=== PATIENT | female | born 1980 | race Caucasian/White ===

== ENCOUNTER → 2019-12-20 13:39 | Outpatient (BNVA) | payer MEDICARE, MEDICAID, SELFPAY | PROVIDERS: PCP Internal Medicine; Visit Provider Family Medicine Adult Medicine | DX: M54.16 Radiculopathy, lumbar region (principal); Z79.891 Long term (current) use of opiate analgesic; Z89.511 Acquired absence of right leg below knee | CPT/HCPCS: 99212 ==

== ENCOUNTER → 2020-01-15 11:38 | Outpatient (BNVA) | payer MEDICARE, MEDICAID, SELFPAY | PROVIDERS: PCP Internal Medicine; Referring Provider Internal Medicine; Visit Provider Family Medicine Adult Medicine | DX: M54.16 Radiculopathy, lumbar region (principal); Z79.891 Long term (current) use of opiate analgesic; Z89.511 Acquired absence of right leg below knee | CPT/HCPCS: 99212 ==

== ENCOUNTER → 2020-02-26 11:56 | Outpatient (BNVA) | payer MEDICARE, MEDICAID, SELFPAY | PROVIDERS: PCP Internal Medicine; Visit Provider Family Medicine Adult Medicine | DX: M54.16 Radiculopathy, lumbar region (principal); Z89.511 Acquired absence of right leg below knee | CPT/HCPCS: 99212 ==

== ENCOUNTER → 2020-04-10 11:06 | Outpatient (BNVA) | payer MEDICARE, MEDICAID, SELFPAY | PROVIDERS: PCP Internal Medicine; Visit Provider Family Medicine Adult Medicine | DX: M54.16 Radiculopathy, lumbar region (principal); Z89.511 Acquired absence of right leg below knee | CPT/HCPCS: 99212 ==

== ENCOUNTER → 2020-04-24 14:27 | Outpatient (BNVA) | payer MEDICARE, MEDICAID, SELFPAY | PROVIDERS: PCP Internal Medicine; Visit Provider Anesthesiology | DX: G54.6 Phantom limb syndrome with pain (principal); Z89.511 Acquired absence of right leg below knee; Z79.899 Other long term (current) drug therapy | CPT/HCPCS: 99212 ==

== ENCOUNTER → 2020-05-08 14:11 | Outpatient (BNVA) | payer MEDICARE, MEDICAID, SELFPAY | PROVIDERS: PCP Internal Medicine; Visit Provider Family Medicine Adult Medicine | DX: M54.16 Radiculopathy, lumbar region (principal); Z89.511 Acquired absence of right leg below knee; Z79.899 Other long term (current) drug therapy | CPT/HCPCS: 99212 ==

== ENCOUNTER 2020-05-12 10:35 | Outpatient (REF) | payer MEDICARE, MEDICAID, SELFPAY ==
--- NOTE | ~2020-05-12 | MR_ITS ---
EXAMINATION: MR LUMBAR SPINE WITHOUT CONTRAST CLINICAL INFORMATION: Radiculopathy, lumbar region. COMPARISON: None TECHNIQUE: MRI of the lumbar spine was obtained using routine sequences without contrast. FINDINGS: VERTEBRAL BODIES AND PARASPINAL STRUCTURES: Vertebral body heights are normal. No fractures. There is relative exaggeration of the lumbar lordosis. There is a partially lumbarized appearance of the S1 vertebral body. Bone marrow signal is likely hematopoietic, relatively low on T1-weighted images, though still greater than that of the adjacent musculature. No significant focal marrow signal abnormalities. Intervertebral discs are relatively well-preserved. There is a 2 cm right renal cyst. Paraspinal soft tissues are otherwise unremarkable. CONUS MEDULLARIS AND CAUDA EQUINA: Normal, terminating at the level of L1-L2. SPINAL LEVELS: T12-L1: Normal L1-L2: Normal L2-L3: Normal L3-L4: Normal L4-L5: Minimal annular bulge, asymmetric to the left. No central canal or neural foraminal stenoses. Mild facet arthropathy. L5-S1: Mild facet arthropathy. No central canal or neural foraminal stenoses. MR/MR lumbar spine wo con IMPRESSION: Mild facet arthropathy in the lower lumbar spine at L4-L5 and L5-S1. No central canal or neural foraminal stenoses.
== END 2020-05-12 10:36 | disposition home or self-care (01) ==
LOC: HO.MRI 10:35
PROVIDERS: PCP Internal Medicine; Visit Provider Anesthesiology
DX: M54.16 Radiculopathy, lumbar region (principal); R26.81 Unsteadiness on feet
CPT/HCPCS: 72148

== ENCOUNTER → 2020-06-05 10:29 | Outpatient (BNVA) | payer OTHER, SELFPAY | PROVIDERS: PCP Internal Medicine; Visit Provider Family Medicine Adult Medicine | DX: M54.16 Radiculopathy, lumbar region (principal); Z89.511 Acquired absence of right leg below knee | CPT/HCPCS: 99212 ==

== ENCOUNTER → 2020-06-11 09:50 | Outpatient (BNVA) | payer OTHER, SELFPAY | PROVIDERS: PCP Internal Medicine; Visit Provider Anesthesiology | DX: G54.6 Phantom limb syndrome with pain (principal); M47.816 Spondylosis without myelopathy or radiculopathy, lumbar region; Z89.511 Acquired absence of right leg below knee | CPT/HCPCS: 99212 ==

== ENCOUNTER → 2020-07-01 11:28 | Outpatient (BNVA) | payer OTHER, SELFPAY | PROVIDERS: PCP Internal Medicine; Visit Provider Family Medicine Adult Medicine | DX: M54.16 Radiculopathy, lumbar region (principal); Z89.511 Acquired absence of right leg below knee | CPT/HCPCS: 99212 ==

== ENCOUNTER → 2020-07-08 11:12 | Outpatient (BNVA) | payer OTHER, SELFPAY | PROVIDERS: PCP Internal Medicine; Visit Provider Family Medicine Adult Medicine | DX: M54.16 Radiculopathy, lumbar region (principal); Z89.511 Acquired absence of right leg below knee | CPT/HCPCS: Q3014 ==

== ENCOUNTER → 2020-08-05 12:43 | Outpatient (BNVA) | payer OTHER, SELFPAY | PROVIDERS: PCP Internal Medicine; Visit Provider Nurse Practitioner Family | DX: M54.16 Radiculopathy, lumbar region (principal); Z89.511 Acquired absence of right leg below knee | CPT/HCPCS: 99212 ==

== ENCOUNTER → 2020-09-03 12:57 | Outpatient (BNVA) | payer OTHER, SELFPAY | PROVIDERS: PCP Internal Medicine; Visit Provider Nurse Practitioner Family | DX: M54.16 Radiculopathy, lumbar region (principal); Z89.511 Acquired absence of right leg below knee; Z79.899 Other long term (current) drug therapy | CPT/HCPCS: 99212 ==

== ENCOUNTER → 2020-09-30 13:28 | Outpatient (BNVA) | payer OTHER, SELFPAY | PROVIDERS: PCP Internal Medicine; Visit Provider Family Medicine Adult Medicine | DX: M54.16 Radiculopathy, lumbar region (principal); Z89.511 Acquired absence of right leg below knee | CPT/HCPCS: 99212 ==

== ENCOUNTER 2020-10-02 14:53 | Outpatient (REF) | payer OTHER, SELFPAY ==
[2020-10-02 15:07] LABS: MANUAL DIFF FLAG NO
[2020-10-02 15:13] LABS: Basophils Absolute Auto 0.1 X10*3/uL (0.0-0.2); Basophils Percent Auto 0.4 % (0-2); Eosinophils Absolute Auto 0.1 X10*3/uL (0.0-0.4); Eosinophils Percent Auto 0.9 % (0-4); Hematocrit 44.2 % (37-47); Hemoglobin 14.4 g/dl (12.0-16.0); Imm Gran Abs Auto 0.05 X10*3/uL (0.00-0.03); Imm Gran Pct Auto 0.4 % (0.0-0.4); Lymphocytes Percent Auto 31.6 % (20-40); Mean Corpuscular HGB Conc 32.6 g/dl (31.0-35.0); Mean Corpuscular Hemoglobin 27.7 pg (27.0-33.0); Mean Platelet Volume 10.4 fL (9.4-12.3); Monocytes Absolute Auto 0.8 X10*3/uL (0.1-1.2); Monocytes Percent Auto 6.4 % (2-11); Neutrophils Absolute Auto 7.7 X10*3/uL (2.0-8.3); Neutrophils Percent Auto 60.3 % (45-73); Platelet Count 307 X10*3/uL (160-400); Red Cell Distribution Width 12.5 % (11.0-16.0); White Blood Count 12.7 X10*3/uL (4.8-10.8)
[2020-10-02 15:38] LABS: Alanine Aminotransferase 27 U/L (0-31); Albumin Level 4.5 g/dL (3.5-5.0); Alkaline Phosphatase 81 U/L (39-117); Anion Gap 10 (12-20); Aspartate Amino Transferase 18 U/L (5-31); Bilirubin Total 0.6 mg/dL (0.0-1.0); Blood Urea Nitrogen 11 mg/dL (9-16); Calcium 9.5 mg/dL (8.4-10.2); Carbon Dioxide 23 mmol/L (22-29); Chloride 112 mmol/L (96-108); Cholesterol 186 mg/dL; Estimated Glomerular Filt Rate > 60; Glucose Fasting 87 mg/dL (60-99); HDL Cholesterol 53 mg/dL; LDL Cholesterol Calculated 122 mg/dl; Potassium 4.4 mmol/L (3.3-5.1); Sodium 141 mmol/L (135-145); Total Protein 7.2 g/dL (6.5-8.0); Triglycerides 59 mg/dL
== END 2020-10-02 14:54 | disposition home or self-care (01) ==
LOC: HO.LAB 14:53
PROVIDERS: PCP Internal Medicine; Visit Provider Internal Medicine
DX: I10 Essential (primary) hypertension (principal); I63.9 Cerebral infarction, unspecified; E78.00 Pure hypercholesterolemia, unspecified; E66.9 Obesity, unspecified
CPT/HCPCS: 36415; 80053; 80061; 84443; 85025

== ENCOUNTER → 2020-10-29 11:31 | Outpatient (BNVA) | payer OTHER, SELFPAY | PROVIDERS: PCP Internal Medicine; Visit Provider Nurse Practitioner Family | DX: M54.16 Radiculopathy, lumbar region (principal); G54.6 Phantom limb syndrome with pain; M47.816 Spondylosis without myelopathy or radiculopathy, lumbar region; Z89.511 Acquired absence of right leg below knee | CPT/HCPCS: 99212 ==

== ENCOUNTER 2021-08-09 13:16 | Emergency (ER) | payer OTHER, SELFPAY ==
--- NOTE | ~2021-08-09 | XR_ITS ---
EXAMINATION: XR KNEE, RIGHT CLINICAL INFORMATION: Stump evaluation with pain COMPARISON: Right knee radiographs the 03/05/2017 TECHNIQUE: AP and lateral views right knee of the right knee. FINDINGS: Status post below the knee amputation. No fracture or dislocation. No knee joint effusion. There is diffuse soft tissue swelling about the residual lower extremity and the. Numerous surgical clips project in the posterior medial soft tissues. No tracking soft tissue gas. No aggressive bone destruction or periostitis. XR/XR knee RT 2V IMPRESSION: 1. Status post below the knee amputation. No acute osseous injury or radiographic evidence of advanced osteomyelitis. 2. Extensive diffuse soft tissue swelling. No tracking soft tissue gas. 3. No knee joint effusion.
[2021-08-09 13:19] VITALS: BP 182/94; PULSE 73; RESP 18; TEMP 37.1; O2SAT 98; BMI 30.1
--- NOTE | 2021-08-09 13:47 | ED.GENADULT ---
HPI - General Adult General Chief complaint: Extremity Problem Stated complaint: ? leg infection Time Seen by Provider: 08/09/21 13:47 Source: patient Mode of arrival: ambulatory Limitations: no limitations History of Present Illness HPI narrative: Patient is a 40 year old female presenting to the emergency department today with a possible infection of her right leg stump. Patient states that she has been busy on her feet since having her child and has been rubbing against her prosthetic more than usual. Patient denies any dizziness, lightheadedness, abdominal pain, nausea, vomiting, fever, chills, blurry vision, double vision, loss of vision, chest pain, difficulty breathing, shortness of breath, back pain, night sweats, pain with urination, increased urinary frequency, increased urinary urgency, blood in her urine or stool, syncope or a near syncopal episode, recent trauma or falls, bowel incontinence, bladder incontinence, bowel retention, bladder retention, or any other complaints at this time. Onset (ago): hour(s) Location: right and lower extremity Radiation: non-radiation Severity: mild Severity scale (1-10): 2 Relieving factors: none Exacerbating factors: none Associated symptoms: denies other symptoms Treatments prior to arrival: none Related Data Home Medications Medication Instructions Recorded Confirmed albuterol sulfate 90 mcg/actuation 2 inh inhalation Q4-6H 08/05/20 01/05/21 breath activated powder inhaler aspirin 81 mg tablet,delayed 81 mg PO DAILY 08/05/20 01/05/21 release (Adult Aspirin Regimen) Previous Rx's Medication Instructions Recorded miscellaneous medical supply See Rx Instructions miscellaneous 04/16/20 .COMPLEX #1 ea miscellaneous medical supply See Rx Instructions miscellaneous 04/16/20 .COMPLEX #2 ea miscellaneous medical supply See Rx Instructions miscellaneous 04/16/20 .COMPLEX #2 ea cetirizine 10 mg tablet 10 mg PO DAILY PRN allergy 10/03/20 symptoms 90 days #90 tabs miscellaneous medical supply See Rx Instructions miscellaneous 10/06/20 .COMPLEX #1 ea miscellaneous medical supply 1 ea miscellaneous DAILY #1 ea 10/22/20 gabapentin 800 mg tablet See Rx Instructions .Route 01/05/21 .COMPLEX 90 days #360 tabs clonazepam 1 mg tablet 1 mg PO BEDTIME PRN anxiety 30 04/27/21 days #30 tabs cephalexin 500 mg capsule 500 mg PO Q6H 7 days #28 caps 08/09/21 Allergies Allergy/AdvReac Type Severity Reaction Status Date / Time No Known Allergies Allergy Verified 08/09/21 13:19 [No Known Allergies*] Review of Systems Constitutional: Constitutional: Reports no additional constitutional complaints, Denies chills, Denies fever(s) and Denies night sweats Eyes: Eyes: Reports no additional eye complaints, Denies blurry vision, Denies change in vision, Denies diplopia, Denies eye discharge, Denies loss of vision and Denies eye pain ENT: Denies dizziness Cardiovascular: Cardiovascular: Reports no additional cardiovascular complaints, Denies chest pain, Denies lightheadedness, Denies Loss of Consciousness and Denies dyspnea Respiratory: Respiratory: Reports no additional respiratory complaints and Denies dyspnea Gastrointestinal: Gastrointestinal: Reports no additional gastrointestinal complaints, Denies abdominal pain, Denies melena, Denies hematochezia, Denies change in bowel habits and Denies change in stool character Genitourinary: Genitourinary: Denies hematuria, Denies urinary frequency, Denies dysuria, Denies urinary incontinence, Denies urinary hesitancy and Denies urinary urgency Musculoskeletal: Musculoskeletal: Reports no additional musculoskeletal complaints, Denies numbness and Denies tingling Integumentary/Breasts: Skin/Breast: Reports erythema (to right lower leg stump) Neurologic: Denies dizziness, Denies loss of vision, Denies numbness and Denies tingling Psychiatric: Psychiatric: Reports no additional psychiatric complaints Endocrine: Endocrine: Reports no additional endocrine complaints Hematologic/Lymphatic: Hematologic/Lymphatic: Reports no additional hematologic/lymphatic complaints Allergic/Immunologic: Allergic/Immunologic: Reports no additional allergic/immunologic complaints [facility] Past Medical History Attestation statement: The following information was validated with the patient. Source: old records reviewed Medical History Smoker Family History Family History Father Heart disease Mother Diabetes Brother Myocardial infarction Bipolar 1 disorder Schizophrenia Maternal Grandmother No problems noted. Paternal Grandfather Colon cancer Family/Other FH: mental illness Sister In good health Social History Social History Housing: House Alcohol intake: current Alcohol intake frequency: holidays/special occasions only Patient Tobacco Use Status: Current everyday Tobacco user Cigarettes Per Day: 5 Smoked in Last 30 Days: Yes Use of substances other than those prescribed or required for medical reasons: No Advance Directives: No Advance Directives Information Provided: No Patient : No service: No Current occupational status: disabled Physical Exam ED Vital Signs: Vital Signs - 24 hr 08/09/21 13:19 Temperature 98.8 F Pulse Rate 73 Respiratory Rate 18 Blood Pressure 182/94 H Pulse Oximetry 98 Oxygen Delivery Method Room Air BMI result Body Mass Index 30.1 Const General: cooperative, no acute distress, alert and awake Nutritional Appearance: well nourished Orientation/consciousness: patient oriented x3 Limitations: no limitations HENMT Head: Yes normal to inspection and Yes atraumatic Ears: hearing grossly normal bilaterally and external ears normal General nose exam: Normal external nose present, no nasal discharge noted and no epistaxis Face and sinus: Yes normal facial exam, No abrasion and No laceration Mouth: Normal oral and palatal mucosa present, no drooling and no muffled voice Eyes General: appearance normal, both eyes and all related structures Periorbital: periorbital findings normal Eyelids: Yes eyelids normal Conjunctivae: conjunctivae normal Pupils: Equal, round and reactive pupils present EOM: EOMs intact bilaterally Neck Neck: Yes normal visual inspection, Yes full ROM and Yes no lymphadenopathy Chest Chest palpation & inspection: normal inspection of the chest Resp Effort & Inspection: normal respiratory effort and able to speak in complete sentences Auscultation: clear to auscultation bilaterally Cardio Rate: regular rate Rhythm: regular rhythm GI Inspection: Yes normal to inspection Skin Other: post below knee amputation to the right lower leg, minimal redness present, significantly dry skin is present surrounding the entire stump Neuro General: patient oriented x3 and moves all extremities Cranial nerves: Yes Equal, round and reactive pupils present Cognition (Neuro): normal cognition Motor exam (neuro): 5/5 motor strength present throughout Sensory Exam: Normal double simultaneous stimulation for sensation Coordination: [id number] test normal Extrem General: Yes normal to inspection, Yes full ROM and Yes capillary refill normal Psych Appearance: grossly normal Mental Status: mental status grossly normal Affect: normal affect Attitude: cooperative Thought process: Normal thought process present Thought content: Normal thought content present Insight: Good insight present (Psych) Medical Decision Making MDM Narrative Medical decision making narrative: Patient is a 40 year old female presenting to the emergency department today with possible right lower leg cellulitis. Patient's physical exam was as documented earlier in the chart with minimal redness and dry skin present to the right lower leg stump. Patient's right lower leg x-ray showed no acute process. I explained my physical exam findings as well as all test results to the patient. I answered all questions asked by the patient. I stressed the importance of the patient taking her medication as prescribed. I stressed the importance of the patient following up with her primary care provider. I stressed the importance of the patient returning to the emergency department immediately if her symptoms were to worsen or if she were to develop any dizziness, shortness of breath, difficulty breathing, chest pain, blurry vision, loss of vision, nausea, vomiting, abdominal pain, fever, chills, back pain, or any other complaints. Patient verbalized agreement and understanding with this treatment plan and discharge. Differential Diagnosis Differential Diagnosis: right lower leg cellulitis Medical Records Medical records reviewed: Yes I reviewed the patient's medical records. Imaging Data Right lower leg x-ray: Attestation: I personally reviewed and interpreted this imaging study as follows: My impression: No acute process. Radiologist's impression: EXAMINATION: XR KNEE, RIGHT? CLINICAL INFORMATION: Stump evaluation with pain? COMPARISON: Right knee radiographs the 03/05/2017? TECHNIQUE: AP and lateral views right knee of the right knee. FINDINGS: Status post below the knee amputation. No fracture or dislocation. No knee joint effusion. There is diffuse soft tissue swelling about the residual lower extremity and the. Numerous surgical clips project in the posterior medial soft tissues. No tracking soft tissue gas. No aggressive bone destruction or periostitis.? XR/XR knee RT 2V IMPRESSION: 1. Status post below the knee amputation. No acute osseous injury or radiographic evidence of advanced osteomyelitis. 2. Extensive diffuse soft tissue swelling. No tracking soft tissue gas. 3. No knee joint effusion. Dictated By: Paulino Villareal Signed By: Electronically signed by Paulino?Mono 08/09/21 1434 Discharge Plan Discharge Clinical Impression: Cellulitis Patient Disposition: Home, Self-Care Instructions: Cellulitis (ED) Additional Instructions: Follow up with your primary care provider. Return to the emergency department immediately if your symptoms worsen or if you develop any dizziness, shortness of breath, difficulty breathing, chest pain, blurry vision, loss of vision, nausea, vomiting, abdominal pain, fever, chills, back pain, or any other complaints. Prescriptions: New cephalexin 500 mg capsule 500 mg PO Q6H 7 Days Qty: 28 0RF No Action miscellaneous medical supply Misc See Rx Instructions miscellaneous .COMPLEX Qty: 2 0RF Rx Instructions: miscellaneous; right gel cushion liner for prosthetic miscellaneous medical supply Misc See Rx Instructions miscellaneous .COMPLEX Qty: 2 0RF Rx Instructions: right suction suspension sleeves for prosthetic miscellaneous; miscellaneous medical supply Misc See Rx Instructions miscellaneous .COMPLEX Qty: 1 0RF Rx Instructions: miscellaneous; right foot shell for prosthetic miscellaneous medical supply Misc See Rx Instructions miscellaneous .COMPLEX Qty: 1 0RF Rx Instructions: miscellaneous; prosthetic shower leg [facility] miscellaneous DAILY Qty: 1 0RF Rx Instructions: Right Below Knee Replacement Socket clonazepam 1 mg tablet 1 mg PO BEDTIME PRN (Reason: anxiety) 30 Days Qty: 30 0RF gabapentin 800 mg tablet See Rx Instructions .ROUTE .COMPLEX 90 Days Qty: 360 1RF Rx Instructions: 1 tablet in the morning, 1 tablet in the afternoon and 2 tablets at bedtime, orally cetirizine 10 mg tablet 10 mg PO DAILY PRN (Reason: allergy symptoms) 90 Days Qty: 90 3RF albuterol sulfate 90 mcg/actuation aerosol powdr breath activated 2 inh inhalation Q4-6H aspirin [Adult Aspirin Regimen] 81 mg tablet,delayed release (DR/EC) 81 mg PO DAILY Referrals: Yvan Amaro MD [Primary Care Provider] - Stand Alone Forms: Work/School Release Interventions: ED Discharge Assessment Last Done: 08/09/21 15:12 Discharge Date/Time: 08/09/21 15:17 Print Language: Venezuelan
== END 2021-08-09 15:17 | disposition home or self-care (01) ==
PROVIDERS: Emergency Provider Emergency Medicine Emergency Medical Services; PCP Internal Medicine
DX: L03.115 Cellulitis of right lower limb (principal); F17.210 Nicotine dependence, cigarettes, uncomplicated; Z71.6 Tobacco abuse counseling; Z79.899 Other long term (current) drug therapy
CPT/HCPCS: 73560; 99283

== ENCOUNTER 2022-12-20 10:13 | Outpatient (AMB) | payer OTHER, SELFPAY ==
--- NOTE | 2022-12-20 10:18 | A.OFFPC_ITS ---
Vital Signs 12/20/22 10:19 Height 5 ft 3 in Weight 176 lb BMI 31.2 BP 138/90 H Blood Pressure Location Lt brachial Position Sitting Pulse 79 Pulse Source Pulse Oximeter Pulse Oximetry (%) 97 Oxygen Delivery Method Room Air Intake Visit Reasons: 4m F/U elevated BP, hyperlipidemia, IFG, Intake Note: Patient here for a 4 month follow up BP, Hyperlipidemia, IFG [employer] Required: No Accompanied by: Self / Same As Patient Allergies No Known Allergies [No Known Allergies*] Allergy (Verified 12/20/22 10:43) Medication List - Last Reconciled 12/20/22 by ARIELA Knihgt albuterol sulfate 90 mcg/actuation 2 inhalations inhalation Q4-6H cetirizine 10 mg PO DAILY PRN 90 days clonazepam 1 mg PO BEDTIME PRN 30 days gabapentin 1 tablet in the morning, 1 tablet in the afternoon and 2 tablets at bedtime, orally 90 days labetalol 600 mg (2 x 300 mg) PO TID 30 days miscellaneous medical supply miscellaneous; right gel cushion liner for prosthetic NS miscellaneous medical supply right suction suspension sleeves for prosthetic miscellaneous; NS miscellaneous medical supply miscellaneous; right foot shell for prosthetic NS miscellaneous medical supply 1 ea miscellaneous DAILY miscellaneous medical supply miscellaneous; prosthetic shower leg Tobacco use date assessed: 04/21/22 Dental Screening Dental Screen Date: 12/20/22 Did you have a dental visit in the last 12 months?: No Did you have a dental problem in the last 6 months where you did not have access to dental care?: No Was dental information given to patient?: Patient has dentist HPI HPI Comments History of Present Illness Details 42-year-old female past medical history significant for white coat syndrome with diagnosis of hypertension, hypercholesteremia, anxiety, right BKA with history of phantom limb pain, lumbar spondylosis. Patient Dr. Prem casillas seen in April patient presents today for follow-up visit. Blood pressure in office today 138/90, patient reports she does have a history of white coat syndrome and her blood pressures are always elevated when she comes to the doctor's. Patient reports she is compliant with her labetalol. Follows low- salt diet. Patient does report she had fallen out of bed a couple times over the summer but states she was sleeping in a different bed on the opposite side so which she was getting out of bed she was referred getting she did not have her prosthetic leg on suffering mechanical fall. Denies LOC. 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 Paternal Grandfather Colon cancer Family/Other FH: mental illness Sister In good health Social History Housing: House Alcohol intake: current Alcohol intake frequency: holidays/special occasions only Patient Tobacco Use Status: Current everyday Tobacco user Tobacco use type: Cigarette Cigarettes Per Day: 5 e-Cigarette/Vaping Use: Never Used Second Hand Smoke Exposure: Yes service: No Current occupational status: disabled Cognitive needs: Yes (amputation of lower limb) Hearing needs: No Vision needs: No Questionnaire Thrive Questionnaire Date Thrive assessed: 04/21/22 SANDRA-7 AMB Questionnaire SANDRA-7 Date SANDRA - 7 assessed: 04/21/22 Source: Developed by Drs. Rodger Mcgregor, Lucero Hernandes, Lawrence Ramsey and colleagues, with an educational froilan from [employer]. Review of Systems Const Denies chills, Denies fatigue, Denies fever(s) and Denies poor appetite Eyes Denies no additional complaints ENT Reports Normal hearing present Card Denies chest pain, Denies syncope, Denies rapid heart rate and Denies dyspnea Resp Denies cough and Denies dyspnea GI Denies change in stool character, Denies constipation, Denies diarrhea, Denies nausea and Denies vomiting Denies urinary frequency, Denies dysuria and Denies urinary urgency Neuro Reports Normal hearing present, Denies confusion and Denies syncope Psych Denies confusion Endo Denies fatigue Physical exam (Primary Care) Vital Signs: Last Vital Signs Pulse 79 12/20/22 10:19 BP 138/90 H 12/20/22 10:19 Pulse Ox 97 12/20/22 10:19 Oxygen Delivery Method Room Air 12/20/22 10:19 BMI result Body Mass Index 31.2 Tobacco/Smoking Status: Tobacco use Status Tobacco use date assessed 04/21/22 12/20/22 10:23 Patient Tobacco Use Status Current everyday Tobacco 12/20/22 10:23 Tobacco use type Cigarette 12/20/22 10:23 e-Cigarette/Vaping Use Never Used 12/20/22 10:23 Thrive Assessment: Date of Thrive Assessment Date Thrive assessed 04/21/22 12/20/22 10:23 Const General: No confusion Orientation/consciousness: No confusion HENMT Head: Yes normocephalic and Yes atraumatic Eyes Conjunctivae: conjunctivae normal Chest Chest palpation & inspection: normal inspection of the chest Resp Effort & Inspection: normal respiratory effort Auscultation: clear to auscultation bilaterally, no crackles, no rhonchi and no wheezes Cardio Rate: regular rate Rhythm: regular rhythm Heart sounds: S1 normal heart sound present and S2 normal heart sound present GI Inspection: Yes normal to inspection Neuro General: No confusion Cranial nerves: Yes Normal hearing present Extrem General: No edema Office Procedures Flu Questionnaire Does the patient have a severe egg allergy?: No Immunizations flu vacc [id number] 6mos up(PF) 60 mcg(15 mcgx4)/0.5 mL IM syringe Performing Provider: ARIELA Knight [facility] Documented (not given) by: OMAR Estrada on 12/20/22 10:23 Reason Not Given: Patient Refused Assessment and Plan Assessment & Plan (1) Pure hypercholesterolemia: Code(s): E78.00 - Pure hypercholesterolemia, unspecified Plan: Patient reminded to get previously ordered fasting blood work completed. (2) White coat syndrome with diagnosis of hypertension: Code(s): I10 - Essential (primary) hypertension Plan: Continue on labetalol. Follow low-salt diet exercise. (3) History of right below knee amputation: Comment: 04/2009 - due to DVT Code(s): Z89.511 - Acquired absence of right leg below knee (4) Anxiety: Code(s): F41.9 - Anxiety disorder, unspecified Plan: Continue on current medications. Plan Follow up in 4 months. Orders: Orders Lipid Panel Today Z13.220 - Encounter for screening for lipoid disorders TSH reflex Free T4 Today Z13.29 - Encounter for screening for other suspected endocrine disorder Vitamin D 25-OH Total Today Z13.21 - Encounter for screening for nutritional disorder Influenza [id number] Immunization Today Z23 - Encounter for immunization Complete Blood Count Auto Diff Today Z13.0 - Encounter for screening for diseases of the blood and blood-forming organs and certain disorders involving the immune mechanism Comprehensive [place]. Panel Fast Today I10 - Essential (primary) hypertension UA CC w/rflx Micro + Cult Today R30.0 - Dysuria, Z00.00 - Encounter for general adult medical examination without abnormal findings Coding Level of Care Code Est Pt Level 3 (58601) Diagnoses Pure hypercholesterolemia E78.00 White coat syndrome with diagnosis of hypertension I10 History of right below knee amputation Z89.511 Anxiety F41.9
[2022-12-20 10:19] VITALS: BP 138/90; PULSE 79; O2SAT 97; BMI 31.2
== END 2022-12-20 10:48 | disposition home or self-care (01) ==
PROVIDERS: PCP Internal Medicine; Visit Provider Nurse Practitioner Family
DX: E78.00 Pure hypercholesterolemia, unspecified (principal); Z89.511 Acquired absence of right leg below knee; I10 Essential (primary) hypertension; F41.9 Anxiety disorder, unspecified
CPT/HCPCS: 99213

== ENCOUNTER 2023-06-10 10:50 | Outpatient (AMB) | payer OTHER, SELFPAY ==
[2023-06-10 10:51] VITALS: BP 156/108; PULSE 100; O2SAT 97; BMI 28.9
--- NOTE | 2023-06-10 10:51 | A.OFFPC_ITS ---
Vital Signs 06/10/23 10:51 Height 5 ft 3 in Weight 163 lb 0.4 oz BMI 28.9 BP 156/108 H Blood Pressure Location Lt brachial Position Sitting Pulse 100 Pulse Source Pulse Oximeter Pulse Oximetry (%) 97 Oxygen Delivery Method Room Air Intake Visit Reasons: 4 month f/u [employer] Required: No Allergies No Known Allergies [No Known Allergies*] Allergy (Verified 06/10/23 11:22) Medication List - Last Reconciled 06/10/23 by Yvan Amaro MD albuterol sulfate 90 mcg/actuation 2 inhalations inhalation Q4-6H amoxicillin-pot clavulanate 875-125 mg 1 tab PO BID 7 days cetirizine 10 mg PO DAILY PRN 90 days clonazepam 1 mg PO BEDTIME PRN gabapentin 1 tablet in the morning, 1 tablet in the afternoon and 2 tablets at bedtime, orally 90 days labetalol 600 mg (2 x 300 mg) PO TID 30 days miscellaneous medical supply miscellaneous; right gel cushion liner for prosthetic NS miscellaneous medical supply right suction suspension sleeves for prosthetic miscellaneous; NS miscellaneous medical supply miscellaneous; right foot shell for prosthetic NS miscellaneous medical supply 1 ea miscellaneous DAILY miscellaneous medical supply miscellaneous; prosthetic shower leg sertraline 50 mg PO DAILY 30 days Tobacco use date assessed: 06/10/23 Dental Screening Dental Screen Date: 06/10/23 Did you have a dental visit in the last 12 months?: Yes Did you have a dental problem in the last 6 months where you did not have access to dental care?: No Was dental information given to patient?: Patient has dentist HPI 4 month f/u HPI Details Patient comes in today for her follow up visit States that her boyfriend suddenly a couple of months ago on 03/31/23 and she has been experiencing increased anxiety since She is currently requesting for a referral for grief counseling and would like to see if her Clonazepam dose/dosing can be increased in the meantime to help with her anxiety Adds that she has been experiencing sore throat as well as symptoms of increased cough and congestion for the past 3 days States that she tested her self for COVID recently and her test came out negative She denies any fever, headaches or dizziness Denies any chest pains; states that her chest feels congested but she denies any increased SOB No nausea/vomiting, no abdominal pain No change in bowel habits noted Admits that she did not get any of her labs ordered by CERT[facility]IED [facility]INAL ANGIOGRAPHER done last fall - advised that she has no labs done since 2020 and should get them done BEFORE she returns for her next appointment [facility] Medical History Allergic rhinitis 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 Paternal Grandfather Colon cancer Family/Other FH: mental illness Sister In good health Social History Housing: House Alcohol intake: current Alcohol intake frequency: holidays/special occasions only Patient Tobacco Use Status: Current everyday Tobacco user Tobacco use type: Cigarette Cigarettes Per Day: 5 e-Cigarette/Vaping Use: Never Used Second Hand Smoke Exposure: Yes service: No Current occupational status: disabled Cognitive needs: Yes (amputation of lower limb) Hearing needs: No Vision needs: No Questionnaire PHQ-9 Over the last 2 weeks, how often have you been bothered by any of the following problems? 1. Little interest or pleasure in doing things: nearly every day (patients boyfriend ) 2. Feeling down, depressed, or hopeless: nearly every day 3. Trouble falling or staying asleep, or sleeping too much: nearly every day 4. Feeling tired or having little energy: nearly every day 5. Poor appetite or overeating: more than half the days 6. Feeling bad about yourself - or that you are a failure or have let yourself or your family down: nearly every day 7. Trouble concentrating on things, such as reading the newspaper or watching television: nearly every day 8. Moving or speaking so slowly that other people could have noticed. Or the opposite - being so fidgety or restless that you have been moving around a lot more than usual: nearly every day 9. Thoughts that you would be better off or of hurting yourself in some way: not at all Total score: 23 Depression Screening Interpretation: Positive Depression Screening Follow-up: In treatment Depression Screening Done: Yes 91007 - PHQ-9 Billing: Yes Source: Developed by Drs. Rodger Mcgregor, Lucero Hernandes, Lawrence Ramsey and colleagues, with an educational froilan from [employer]. Thrive Questionnaire Date Thrive assessed: 06/10/23 I am a: Patient What is your living situation today?: I have a steady place to live Within the past 12 months, did the food you bought not last and you didn't have the money to get more?: Never true Within the past 12 months, did you worry whether your food would run out before you got money to buy more?: Never true Do you have trouble paying for medicines?: No Do you have trouble getting transportation to medical appointments?: No Do you have trouble paying your heating and electricity bill?: No Do you have trouble taking care of your child, family member or friend?: No Do you have trouble with day-to-day activities such as bathing, preparing meals, shopping, managing finances, etc.?: No Are you currently unemployed and looking for a job?: No Are you interested in more education?: No Please select the resources that you would like help with: None Currently or been in a relationship where the following occur: no concerns reported THRIVE Score: 0 AUDIT C Alcohol Use Questionnaire (AUDIT-C) 1. How often do you have a drink containing alcohol?: Never 3. How often do you have six or more drinks on one occasion?: Never Total Score: 0 Score Reviewed/Action Taken: Yes SANDRA-7 AMB Questionnaire SANDRA-7 Date SANDRA - 7 assessed: 06/10/23 Feeling nervous, anxious, or on edge: 3 = Nearly every day (patients boyfriend ) Not being able to stop or control worryin = Nearly every day Worrying too much about different things: 3 = Nearly every day Trouble relaxin = Nearly every day Being so restless that it is hard to sit still: 3 = Nearly every day Becoming easily annoyed or irritable: 3 = Nearly every day Feeling afraid as if something awful might happen: 0 = Not at all Total SANDRA-7 score (0-4 normal; 5-9 mild; 10-14 moderate; 15-21 severe): 18 Source: Developed by Drs. Rodger Mcgregor, Lucero Hernandes, Lawrence Ramsey and colleagues, with an educational froilan from [employer]. SANDRA-7 Assessment Billing SANDRA-7 Assessment Tool: SANDRA-7 Assessment 99240 Review of Systems Const Denies chills, Reports fatigue, Denies fever(s) and Denies headache(s) ENT Denies dysphagia, Denies dizziness, Denies otalgia, Denies headache(s), Reports nasal congestion, Denies neck pain, Denies sinus pain and Reports sore throat Card Denies chest pain, Denies palpitations and Denies dyspnea Resp Reports chest congestion, Reports cough (recurrent; coughs up minimal greenish phlegm at times), Denies dyspnea and Denies wheezing GI Denies abdominal pain, Denies constipation, Denies dysphagia, Denies heartburn, Denies diarrhea, Denies nausea and Denies vomiting Denies difficulty voiding, Denies nocturia, Denies dysuria and Denies urinary urgency Musc Reports back pain (over the lower back - chronic) and Denies neck pain Skin/Breast Denies rash Neuro Denies dizziness and Denies headache(s) Psych Reports anxiety (increased - see HPI for details), Reports depression and Denies suicidal ideation Endo Reports fatigue and Denies palpitations Aller/Immun Denies wheezing Physical exam (Primary Care) Vital Signs: Last Vital Signs Pulse 100 06/10/23 10:51 BP 156/108 H 06/10/23 10:51 Pulse Ox 97 06/10/23 10:51 Oxygen Delivery Method Room Air 06/10/23 10:51 BMI result Body Mass Index 28.9 Tobacco/Smoking Status: Tobacco use Status Tobacco use date assessed 06/10/23 06/10/23 10:58 Patient Tobacco Use Status Current everyday Tobacco 06/10/23 10:58 Tobacco use type Cigarette 06/10/23 10:58 e-Cigarette/Vaping Use Never Used 06/10/23 10:58 PHQ-9: PHQ-9 Score PHQ-9: Total score 23 06/10/23 11:25 Depression Screening Interpretation: Positive Depression Screening Follow-up: In treatment Thrive Assessment: Date of Thrive Assessment Date Thrive assessed 06/10/23 06/10/23 10:58 Currently or been in a relationship where the following occur: no concerns reported Const General: no acute distress and alert HENMT Ears: TM's normal bilaterally and EAC's normal Throat: Yes abnormal tonsil (mild TP congestion bilaterally) and Yes posterior oropharynx abnormal (increased erythema of the posterior pharynx) Neck Neck: Yes no lymphadenopathy and Yes supple Thyroid: Thyroid normal Resp Auscultation: no rales, rhonchi (scattered) throughout, no wheezes, diminished lung sounds (slightly) bilateral and bronchial breath sounds (occasionally) Cardio Rate: regular rate Rhythm: regular rhythm Heart sounds: no murmurs GI Palpation (GI): Soft to palpation and nontender Auscultation: normal bowel sounds General: Yes no CVA tenderness Back/Spine/Pelvis Back: no CVA tenderness Thoracic/Lumbar Spine: lumbar spinal tenderness (mild) Skin Rashes: no rashes Extrem General: Yes no clubbing, cyanosis or edema Assessment and Plan Assessment & Plan (1) Respiratory tract infection: Code(s): J98.8 - Other specified respiratory disorders Plan: Will start her on Augmentin 875 mg BID x 7 days (2) White coat syndrome with diagnosis of hypertension: Code(s): I10 - Essential (primary) hypertension Plan: Reinforced low sodium diet - goal is systolic BP of 120 mm or less Continue Labetalol 600 mg BID Patient has white coat syndrome and her blood pressure have been consistently elevated during most of her office visits here over the years Her systolic blood pressure at home usually runs from 110 to 120 mm - she is advised to continue monitoring her BP regularly She was on Zestoretic back in 2016 but Rx was discontinued following a bout of? hyPOtension?and acute renal failure and she has not taken any BP meds since; was started on Clonidine for anxiety a couple of years ago but she was then advised to stop taking this a few months ago when she was admitted at [facility] due to concerns about potential adrenal insufficiency (3) Pure hypercholesterolemia: Code(s): E78.00 - Pure hypercholesterolemia, unspecified Plan: Reinforced low cholesterol diet Used to take Atorvastatin but has not taken this in the past few months Will have her recheck her labs and fasting lipids in 4 months for follow up - is advised to get these done as she has not had any follow up labs done since 2020 (4) Allergic rhinitis: Code(s): J30.9 - Allergic rhinitis, unspecified Qualifiers: Allergic rhinitis trigger: unspecified Allergic rhinitis seasonality: unspecified Qualified Code(s): J30.9 - Allergic rhinitis, unspecified Plan: Continue Cetirizine 10 mg QD PRN (was been taking Hydroxyzine in the past with little relief of symptoms) She was also previously referred to soil field technician for further evaluation and management as she may benefit from allergy testing (5) Spondylosis of lumbar region without myelopathy or radiculopathy: Code(s): M47.816 - Spondylosis without myelopathy or radiculopathy, lumbar region Plan: Reinforced activity and weight-lifting restrictions to avoid aggravating her back pain Follow up with pain management as scheduled (6) Cerebral infarction: Code(s): I63.9 - Cerebral infarction, unspecified Qualifiers: Cerebral infarction mechanism: unspecified mechanism Qualified Code(s): I63.9 - Cerebral infarction, unspecified Plan: Chronic left cerebral infarctions are seen on brain MRI done on 03/10/2020 Follow up with neurology as scheduled (7) History of right below knee amputation: Comment: 04/2009 - due to DVT Code(s): Z89.511 - Acquired absence of right leg below knee Plan: She currently has a right leg prosthesis (8) Phantom pain following amputation of lower limb: Code(s): G54.6 - Phantom limb syndrome with pain Plan: Continue Gabapentin 800 mg every 8 hours Follow up with Pain Management as scheduled (9) Anxiety: Code(s): F41.9 - Anxiety disorder, unspecified Plan: Patient relates that this has increased since her boyfriend's abrupt passing a couple of months ago Per request, will refer her to psychiatry for GRIEF COUNSELING Will increase her Clonazepam for now from 1 mg QHS PRN to 1 mg BID PRN Will also start her on Sertraline 50 mg QD (10) Smoker: Code(s): F17.200 - Nicotine dependence, unspecified, uncomplicated Plan: Counseled again on smoking cessation (11) Overweight (BMI 25.0-29.9): Code(s): E66.3 - Overweight Plan: Reinforced diet/exercise as tolerated/lose weight Plan To return in 4 months for her annual physical examination Orders: Orders Comprehensive [place]. Panel Fast 4 Months E78.00 - Pure hypercholesterolemia, unspecified, Z00.00 - Encounter for general adult medical examination without abnormal findings Vitamin D 25-OH Total 4 Months E55.9 - Vitamin D deficiency, unspecified, Z00.00 - Encounter for general adult medical examination without abnormal findings Complete Blood Count Auto Diff 4 Months D64.9 - Anemia, unspecified, Z00.00 - Encounter for general adult medical examination without abnormal findings Lipid Panel 4 Months E78.00 - Pure hypercholesterolemia, unspecified, Z00.00 - Encounter for general adult medical examination without abnormal findings TSH reflex Free T4 4 Months E78.00 - Pure hypercholesterolemia, unspecified, Z00.00 - Encounter for general adult medical examination without abnormal findings UA CC w/rflx Micro + Cult 4 Months R30.0 - Dysuria, Z00.00 - Encounter for general adult medical examination without abnormal findings Referrals Psychiatry Referral F41.9 - Anxiety disorder, unspecified, Z71.89 - Other specified counseling Medications: New amoxicillin-pot clavulanate 875-125 mg 1 tab PO BID 7 days 14 tabs 0RF sertraline 50 mg PO DAILY 30 days 30 tabs 2RF Changed From clonazepam 1 mg PO BEDTIME PRN anxiety To clonazepam 1 mg PO BID PRN 60 tabs 0RF anxiety Coding Level of Care Code Est Pt Level 4 (58686) Diagnoses Respiratory tract infection J98.8 White coat syndrome with diagnosis of hypertension I10 Pure hypercholesterolemia E78.00 Allergic rhinitis, unspecified seasonality, unspecified trigger J30.9 Allergic rhinitis trigger: unspecified Allergic rhinitis seasonality: unspecified Spondylosis of lumbar region without myelopathy or radiculopathy M47.816 Cerebral infarction, unspecified mechanism I63.9 Cerebral infarction mechanism: unspecified mechanism History of right below knee amputation Z89.511 Phantom pain following amputation of lower limb G54.6 Anxiety F41.9 Smoker F17.200 Overweight (BMI 25.0-29.9) E66.3 Additional Codes SANDRA-7 Assessment Billing - SANDRA-7 Assessment Tool: SADNRA-7 Assessment 08735 ([id number])
== END 2023-06-10 11:37 | disposition home or self-care (01) ==
PROVIDERS: PCP Internal Medicine; Visit Provider Internal Medicine
DX: J98.8 Other specified respiratory disorders (principal); Z89.511 Acquired absence of right leg below knee; G54.6 Phantom limb syndrome with pain; F41.9 Anxiety disorder, unspecified; I10 Essential (primary) hypertension; E78.00 Pure hypercholesterolemia, unspecified; Z86.73 Personal history of transient ischemic attack (TIA), and cerebral infarction without residual deficits; E66.3 Overweight; Z68.28 Body mass index [BMI] 28.0-28.9, adult; J30.9 Allergic rhinitis, unspecified; M47.816 Spondylosis without myelopathy or radiculopathy, lumbar region; F17.210 Nicotine dependence, cigarettes, uncomplicated
CPT/HCPCS: 96127; 99214

== ENCOUNTER 2024-02-01 12:53 | Outpatient (AMB) | payer OTHER, SELFPAY ==
[2024-02-01 12:54] VITALS: BP 162/110; PULSE 105; O2SAT 98; BMI 29.1
--- NOTE | 2024-02-01 12:54 | MHC.PC.OV ---
Vital Signs 02/01/24 12:54 Height 5 ft 3 in Weight 164 lb 8 oz BMI 29.1 BP 162/110 H Blood Pressure Location Lt brachial Position Sitting Pulse 105 H Pulse Source Pulse Oximeter Pulse Oximetry (%) 98 Oxygen Delivery Method Room Air Intake Visit Reasons: ANNUAL Fundraising Specialist Required: No Accompanied by: Self / Same As Patient Allergies No Known Allergies [No Known Allergies*] Allergy (Verified 02/01/24 13:26) Medication List - Last Reconciled 02/01/24 by Yvan Amaro MD albuterol sulfate 90 mcg/actuation 2 inhalations inhalation Q4-6H cetirizine 10 mg PO DAILY PRN 90 days clonazepam 1 mg PO BID PRN gabapentin 1 tablet in the morning, 1 tablet in the afternoon and 2 tablets at bedtime, orally 90 days miscellaneous medical supply miscellaneous; right gel cushion liner for prosthetic NS miscellaneous medical supply right suction suspension sleeves for prosthetic miscellaneous; NS miscellaneous medical supply miscellaneous; right foot shell for prosthetic NS miscellaneous medical supply 1 ea miscellaneous DAILY miscellaneous medical supply miscellaneous; prosthetic shower leg Tobacco use date assessed: 02/01/24 Dental Screening Dental Screen Date: 02/01/24 HPI ANNUAL HPI Details Patient comes in today for her annual physical examination States that she feels okay She denies any headaches or dizziness Denies any chest pains, no increased shortness of breath No nausea/vomiting, no abdominal pain No change in bowel habits noted She denies any acute urinary symptoms States that she continues to experience recurrent low back pain but this has not gotten any significantly worse over the past few years She used to see Dr. Pinedo at pain management for back pain and had an MRI of the lumbar spine done back on 05/12/2020 that revealed (+) mild facet arthropathy in the lower lumbar spine at L4-L5 and L5-S1, with no central canal or neural foraminal stenosis Needs her clonazepam Rx refilled today She was previously started on Sertraline 50 mg QD for her mood disorder she admitted that she never filled the Rx and started the medication She was not able to get her previously ordered labs done yet - states that she will try to get these done LYNDSAY Her waxer floor is at [facility] and her last gynecology exam and pap smear was over 2 yrs ago She also has never had a screening mammogram done in the past [facility] Medical History (Updated 02/05/24 @ 14:18 by Yvan Amaro MD) Depression Allergic rhinitis 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 Paternal Grandfather Colon cancer Family/Other FH: mental illness Sister In good health Social History Housing: House Alcohol intake: current Alcohol intake frequency: holidays/special occasions only Patient Tobacco Use Status: Current everyday Tobacco user Tobacco use type: Cigarette Cigarettes Per Day: 5 e-Cigarette/Vaping Use: Never Used Second Hand Smoke Exposure: Yes service: No Current occupational status: disabled Cognitive needs: Yes (amputation of lower limb) Hearing needs: No Vision needs: No Questionnaire PHQ-9 Over the last 2 weeks, how often have you been bothered by any of the following problems? 1. Little interest or pleasure in doing things: several days 2. Feeling down, depressed, or hopeless: several days 3. Trouble falling or staying asleep, or sleeping too much: nearly every day 4. Feeling tired or having little energy: nearly every day 5. Poor appetite or overeating: several days 6. Feeling bad about yourself - or that you are a failure or have let yourself or your family down: not at all 7. Trouble concentrating on things, such as reading the newspaper or watching television: several days 8. Moving or speaking so slowly that other people could have noticed. Or the opposite - being so fidgety or restless that you have been moving around a lot more than usual: several days 9. Thoughts that you would be better off or of hurting yourself in some way: not at all Total score: 11 Depression Screening Interpretation: Positive Depression Screening Follow-up: Existing condition and New Medication prescribed Depression Screening Done: Yes 73211 - PHQ-9 Billing: Yes Source: Developed by Drs. Rodger Mcgregor, Lucero Hernandes, Lawrence Ramsey and colleagues, with an educational froilan from [employer]. Thrive Questionnaire Date Thrive assessed: 02/01/24 I am a: Patient What is your living situation today?: I have a steady place to live Within the past 12 months, did the food you bought not last and you didn't have the money to get more?: Never true Within the past 12 months, did you worry whether your food would run out before you got money to buy more?: Never true Do you have trouble paying for medicines?: No Do you have trouble getting transportation to medical appointments?: No Do you have trouble paying your heating and electricity bill?: No Do you have trouble taking care of your child, family member or friend?: No Do you have trouble with day-to-day activities such as bathing, preparing meals, shopping, managing finances, etc.?: No Are you currently unemployed and looking for a job?: No Are you interested in more education?: No Please select the resources that you would like help with: None Currently or been in a relationship where the following occur: No concerns reported THRIVE Score: 0 AUDIT C Alcohol Use Questionnaire (AUDIT-C) 1. How often do you have a drink containing alcohol?: Monthly or less 2. How many drinks containing alcohol do you have on a typical day when you are drinking?: 1 or 2 3. How often do you have six or more drinks on one occasion?: Never Total Score: 1 Score Reviewed/Action Taken: Yes SANDRA-7 AMB Questionnaire SANDRA-7 Date SANDRA - 7 assessed: 02/01/24 Feeling nervous, anxious, or on edge: 1 = Several days Not being able to stop or control worryin = Several days Worrying too much about different things: 1 = Several days Trouble relaxin = Several days Being so restless that it is hard to sit still: 1 = Several days Becoming easily annoyed or irritable: 0 = Not at all Feeling afraid as if something awful might happen: 0 = Not at all Total SANDRA-7 score (0-4 normal; 5-9 mild; 10-14 moderate; 15-21 severe): 5 Source: Developed by Drs. Rodger Mcgregor, Lucero Hernandes, Lawrence Ramsey and colleagues, with an educational froilan from [employer]. Review of Systems Const Denies chills, Denies difficulty sleeping, Reports fatigue, Denies fever(s), Denies headache(s) and Denies malaise Eyes Denies blurry vision, Denies change in vision, Denies irritation and Denies itchy eyes ENT Denies dysphagia, Denies dizziness, Denies otalgia, Denies headache(s), Denies nasal congestion, Denies neck pain, Denies odynophagia, Denies sinus pain and Denies sore throat Card Denies chest pain, Denies rapid heart rate, Denies irregular heart rhythm, Denies palpitations and Denies dyspnea Resp Denies chest congestion, Denies cough, Denies dyspnea and Denies wheezing GI Denies abdominal pain, Denies bloating, Denies constipation, Denies dysphagia, Denies heartburn, Denies diarrhea, Denies nausea, Denies odynophagia and Denies vomiting Denies hematuria, Denies urinary frequency, Denies dysuria, Denies urinary incontinence and Denies urinary urgency Musc Reports back pain (over the lower back - chronic), Denies arthralgias, Denies joint swelling, Denies muscle weakness and Denies neck pain Skin/Breast Denies breast pain, Denies breast mass, Denies change in pigmentation, Denies lesions, Denies rash and Denies unusual bruising Neuro Denies dizziness, Denies headache(s) and Denies paresthesias Psych Reports anxiety, Reports depression and Denies suicidal ideation Endo Reports fatigue and Denies palpitations Bill/Lymph Denies easy bruising Aller/Immun Denies itchy eyes and Denies wheezing Physical exam (Primary Care) Vital Signs: Last Vital Signs Pulse 105 H 02/01/24 12:54 BP 162/110 H 02/01/24 12:54 Pulse Ox 98 02/01/24 12:54 Oxygen Delivery Method Room Air 02/01/24 12:54 BMI result Body Mass Index 29.1 Tobacco/Smoking Status: Tobacco use Status Tobacco use date assessed 02/01/24 02/01/24 12:58 Patient Tobacco Use Status Current everyday Tobacco 12/11/24 12:58 Tobacco use type Cigarette 02/01/24 12:58 e-Cigarette/Vaping Use Never Used 02/01/24 12:58 PHQ-9: PHQ-9 Score PHQ-9: Total score 11 02/01/24 13:35 Depression Screening Interpretation: Positive Depression Screening Follow-up: Existing condition and New Medication prescribed Thrive Assessment: Date of Thrive Assessment Date Thrive assessed 02/01/24 02/01/24 12:58 Currently or been in a relationship where the following occur: No concerns reported Const General: no acute distress, alert and awake Orientation/consciousness: patient oriented x3 HENMT Head: Yes normocephalic and Yes atraumatic Ears: external ears normal, TM's normal bilaterally and EAC's normal General nose exam: No nasal discharge present Face and sinus: Yes normal facial exam and Yes sinuses nontender Teeth and gingiva: dentition normal Throat: Yes posterior oropharynx normal and Yes tonsils normal (no TP congestion) Eyes Eyelids: Yes eyelids normal Conjunctivae: conjunctivae normal Pupils: Equal, round and reactive pupils present EOM: EOMs intact bilaterally Neck Neck: Yes no lymphadenopathy and Yes supple Thyroid: Thyroid normal Resp Auscultation: clear to auscultation bilaterally, no rales and no wheezes Cardio Rate: regular rate Rhythm: regular rhythm Heart sounds: no murmurs GI Palpation (GI): Soft to palpation, nontender and No hepatosplenomegaly present Auscultation: normal bowel sounds General: Yes no CVA tenderness Back/Spine/Pelvis Back: no CVA tenderness Thoracic/Lumbar Spine: lumbar spinal tenderness Skin Lesions: no lesions Rashes: no rashes Neuro General: patient oriented x3, moves all extremities, no focal motor deficits and CN's II-XI intact bilaterally Cranial nerves: Yes Equal, round and reactive pupils present Cognition (Neuro): normal cognition Gait exam (Neuro): Normal gait present Extrem General: Yes no clubbing, cyanosis or edema Coding Level of Care Code Est Pt Prev Care 40-64y(77621) Diagnoses Annual physical exam Z00.00 White coat syndrome with diagnosis of hypertension I10 Pure hypercholesterolemia E78.00 Allergic rhinitis, unspecified seasonality, unspecified trigger J30.9 Allergic rhinitis trigger: unspecified Allergic rhinitis seasonality: unspecified Spondylosis of lumbar region without myelopathy or radiculopathy M47.816 Cerebral infarction, unspecified mechanism I63.9 Cerebral infarction mechanism: unspecified mechanism History of right below knee amputation Z89.511 Phantom pain following amputation of lower limb G54.6 Anxiety F41.9 Episode of recurrent major depressive disorder, unspecified depression episode severity F33.9 Depression Type: major depressive disorder Major depression recurrence: recurrent Active/Remission status: currently active Major depression episode severity: unspecified Smoker F17.200 Overweight (BMI 25.0-29.9) E66.3 Breast cancer screening by mammogram Z12.31 Additional Codes PHQ-9 - 00362 - PHQ-9 Billing: Yes ([id number]) Assessment & Plan Assessment & Plan (1) Annual physical exam: Code(s): Z00.00 - Encounter for general adult medical examination without abnormal findings Category: Medical Plan: Check labs LYNDSAY - we will just have patient use her previous orders (updated) for her lab draw She is past due for her annual gynecology exam and pap smear and is advised to reach out to her waxer floor at [facility] to schedule her appointment LYNDSAY Will also have her start mammography screening (2) White coat syndrome with diagnosis of hypertension: Code(s): I10 - Essential (primary) hypertension Category: Medical Plan: Reinforced low sodium diet - goal is systolic BP of 120 mm or less Continue Labetalol 600 mg BID Patient has white coat syndrome and her blood pressure have been consistently elevated during most of her office visits here over the years Her systolic blood pressure at home usually runs from 110 to 120 mm - she is advised to continue monitoring her BP regularly She was on Zestoretic back in 2015 but Rx was discontinued following a bout of?hyPOtension?and acute renal failure and she has not taken any BP meds since She was started on Clonidine for anxiety a couple of years ago but she was then advised to stop taking this a few months ago when she was admitted at [facility] due to concerns about potential adrenal insufficiency She is instructed to continue monitoring her blood pressure regularly (3) Pure hypercholesterolemia: Code(s): E78.00 - Pure hypercholesterolemia, unspecified Category: Medical Plan: Reinforced low cholesterol diet She used to take Atorvastatin but has not taken this in some time now Will have her recheck her labs and fasting lipids LYNDSAY for follow up, as she has not had any folllow up labs done since 2020 (4) Allergic rhinitis: Code(s): J30.9 - Allergic rhinitis, unspecified Category: Medical Qualifiers: Allergic rhinitis trigger: unspecified Allergic rhinitis seasonality: unspecified Qualified Code(s): J30.9 - Allergic rhinitis, unspecified Plan: Continue Cetirizine 10 mg QD PRN (was been taking Hydroxyzine in the past with little relief of symptoms) She was also previously referred to painter hand for further evaluation and management as she may benefit from allergy testing (5) Spondylosis of lumbar region without myelopathy or radiculopathy: Code(s): M47.816 - Spondylosis without myelopathy or radiculopathy, lumbar region Category: Medical Plan: Reinforced activity and weight-lifting restrictions to avoid aggravating her back pain MRI of the lumbar spine done back on 05/12/2020 that revealed (+) mild facet arthropathy in the lower lumbar spine at L4-L5 and L5-S1, with no central canal or neural foraminal stenosis Follow up with pain management as scheduled or as needed (6) Cerebral infarction: Code(s): I63.9 - Cerebral infarction, unspecified Category: Medical Qualifiers: Cerebral infarction mechanism: unspecified mechanism Qualified Code(s): I63.9 - Cerebral infarction, unspecified Plan: Chronic left cerebral infarctions are seen on brain MRI done on 03/10/2020 Follow up with neurology as scheduled (7) History of right below knee amputation: Comment: 04/2009 - due to DVT Code(s): Z89.511 - Acquired absence of right leg below knee Category: Surgical Plan: She currently has a right leg prosthesis so she is able to move around on her own reasonably well (8) Phantom pain following amputation of lower limb: Code(s): G54.6 - Phantom limb syndrome with pain Category: Medical Plan: Continue Gabapentin 800 mg every 8 hours Follow up with Pain Management as scheduled (9) Anxiety: Code(s): F41.9 - Anxiety disorder, unspecified Category: Medical Plan: Patient reports experiencing increased anxiety since her boyfriend's abrupt passing a few months ago Per request, she has been referred to psychiatry for GRIEF COUNSELING We previously increased her Clonazepam to 1 mg BID PRN and started her on Sertraline 50 mg QD but she admits that she never filled the Rx or started on it but is now willing to start taking it Rx for Sertraline 50 mg QD sent to her pharmacy (10) Depression: Code(s): F32.A - Depression, unspecified Category: Medical Qualifiers: Depression Type: major depressive disorder Major depression recurrence: recurrent Active/Remission status: currently active Major depression episode severity: unspecified Qualified Code(s): F33.9 - Major depressive disorder, recurrent, unspecified Plan: Will start her on Sertraline 50 mg QD (11) Smoker: Code(s): F17.200 - Nicotine dependence, unspecified, uncomplicated Category: Social Hx Plan: Patient is counseled again on smoking cessation (12) Overweight (BMI 25.0-29.9): Code(s): E66.3 - Overweight Category: Medical Plan: Reinforced diet/exercise as tolerated/lose weight (13) Breast cancer screening by mammogram: Code(s): Z12.31 - Encounter for screening mammogram for malignant neoplasm of breast Category: Medical Plan: She will start her annual breast cancer screening now - screening mammogram ordered Plan Follow-up in 3 months Orders: Orders MM tomosynthesis screening BI 02/01/24 Z12.31 - Encounter for screening mammogram for malignant neoplasm of breast Medications: New sertraline 50 mg PO DAILY 90 days 90 tabs 1RF Refilled clonazepam 1 mg PO BID PRN 60 tabs 0RF anxiety
== END 2024-02-01 13:40 | disposition home or self-care (01) ==
PROVIDERS: PCP Internal Medicine; Visit Provider Internal Medicine
DX: Z00.00 Encounter for general adult medical examination without abnormal findings (principal); Z89.511 Acquired absence of right leg below knee; G54.6 Phantom limb syndrome with pain; F33.9 Major depressive disorder, recurrent, unspecified; I10 Essential (primary) hypertension; Z86.73 Personal history of transient ischemic attack (TIA), and cerebral infarction without residual deficits; E78.00 Pure hypercholesterolemia, unspecified; J30.9 Allergic rhinitis, unspecified; M47.816 Spondylosis without myelopathy or radiculopathy, lumbar region; F41.9 Anxiety disorder, unspecified; F17.200 Nicotine dependence, unspecified, uncomplicated; E66.3 Overweight

== ENCOUNTER → 2024-02-01 12:53 | Outpatient (BNVA) | payer OTHER, SELFPAY | PROVIDERS: PCP Internal Medicine; Visit Provider Internal Medicine | DX: Z00.00 Encounter for general adult medical examination without abnormal findings (principal); I10 Essential (primary) hypertension; E78.00 Pure hypercholesterolemia, unspecified; J30.9 Allergic rhinitis, unspecified; M47.816 Spondylosis without myelopathy or radiculopathy, lumbar region; I63.9 Cerebral infarction, unspecified; F41.9 Anxiety disorder, unspecified; F33.9 Major depressive disorder, recurrent, unspecified; F17.200 Nicotine dependence, unspecified, uncomplicated; Z79.899 Other long term (current) drug therapy; Z71.6 Tobacco abuse counseling | CPT/HCPCS: 96127; 99396 ==

== ENCOUNTER 2024-05-04 03:39 | Emergency (ER) | payer OTHER, SELFPAY ==
--- NOTE | ~2024-05-04 | CT_ITS ---
CLINICAL HISTORY: fall, POPE CT head without contrast Comparison: None Findings: There is evolution within left frontal lobe. There is also mild encephalomalacia within the left external capsule. Compensatory mild dilation of the left lateral ventricle. No acute hemorrhage mass effect or midline shift. There is large left mastoid effusion with complete opacification of the left mastoid air cells. There is also effusion within the left middle ear and opacification of the left epitympanic recess. There is right mastoid effusion with incomplete opacification. There is aeration of the right middle ear. Mild deformity left nasal bone. The nasal bones are incompletely included on the field of view. The orbits are within normal limits. No skull fracture. IMPRESSION: No acute intracranial findings. Encephalomalacia within the left frontal lobe and left external capsule sequela from prior infarct or old trauma Bilateral mastoid effusions [id number]-right, left otitis media, possible left cholesteatoma Mild deformity left nasal bone suspicious for nondisplaced fracture new or old, the nasal bones are incompletely included on the field of view. Correlate with physical exam and patient's clinical history This document has been electronically signed by: Rodger Tobar MD on 05/04/2024 05:02:27
[2024-05-04 03:42] VITALS: BP 187/127; PULSE 103; RESP 16; TEMP 36.6; O2SAT 98; BMI 27.4
--- NOTE | 2024-05-04 04:17 | ED.FALL ---
HPI - Fall General Chief Complaint: Fall Stated Complaint: fall Time Seen by Provider: 05/04/24 04:14 Source: patient Mode of arrival: ambulatory Limitations: no limitations History of Present Illness ED Provider: Dr. Apurva Arredondo HPI Narrative: Patient comes to the emergency room complaining of a headache that started 2 days ago after a fall, mechanical fall after getting out of bed. Patient also states that she has been having trouble remembering her past words. Patient states that she has a prosthetic leg on the right side, seems that the prosthetic leg was not well attached and patient fell. Patient denies losing consciousness, denies being on blood thinners. Related Data Home Medications ?Medication ?Instructions ?Recorded ?Confirmed albuterol sulfate 90 mcg/actuation 2 inh inhalation Q4-6H 08/05/20 02/01/24 breath activated powder inhaler Previous Rx's ?Medication ?Instructions ?Recorded miscellaneous medical supply See Rx Instructions miscellaneous 04/16/20 .COMPLEX #1 ea miscellaneous medical supply See Rx Instructions miscellaneous 04/16/20 .COMPLEX #2 ea miscellaneous medical supply See Rx Instructions miscellaneous 04/16/20 .COMPLEX #2 ea miscellaneous medical supply See Rx Instructions miscellaneous 10/06/20 .COMPLEX #1 ea miscellaneous medical supply 1 ea miscellaneous DAILY #1 ea 10/22/20 cetirizine 10 mg tablet 10 mg PO DAILY PRN allergy 05/18/23 symptoms 90 days #90 tabs sertraline 50 mg tablet 50 mg PO DAILY 90 days #90 tabs 02/01/24 gabapentin 800 mg tablet See Rx Instructions .Route 03/19/24 .COMPLEX 90 days #360 tabs clonazepam 1 mg tablet 1 mg PO BID PRN anxiety #60 tabs 04/04/24 Allergies Allergy/AdvReac Type Severity Reaction Status Date / Time No Known Allergies Allergy Verified 05/04/24 03:44 [No Known Allergies*] Review of Systems Review of Systems: Constitutional : No Weight loss, No Fever, No Chills, No Night Sweats, No Fatigue, No Malaise ENT/Mouth : No Hearing loss, No Ear Pain, No Nasal Congestion, No Sinus Pain, No Hoarseness, No sore throat, No Rhinorrhea, No Swallowing Difficulty Eyes: No Eye Pain, No Swelling, No Redness, No Foreign Body, No Discharge, No Vision Changes Cardiovascular : No Chest Pain, No SOB, No Dyspnea on Exertion, No Orthopnea, No Edema, No Palpitations Respiratory : No Cough, No Sputum, No Wheezing, No Smoke Exposure, No Dyspnea Gastrointestinal : No Nausea, No Vomiting, No Diarrhea, No Constipation, No abdominal Pain, No Hematochezia, No Melena Genitourinary : no irregular bleeding, No Dysuria, No Urinary Frequency, No Hematuria, No Urinary Incontinence, No Urgency, No Flank Pain, No Urinary Flow Changes, No Hesitancy Musculoskeletal : No joint pain, No Myalgias, No Joint Swelling Skin : No Skin Lesions, No rash Neuro : No Weakness, No Numbness, No Paresthesias, No Loss of Consciousness, No Dizziness, No Headache , complaining of memory problems including not remembering her daily Internet passwords Psych : No Anxiety/Panic, No Depression, No SI/HI/AH/VH, No Social Issues, Heme/Lymph: No Bruising, No Bleeding,No Lymphadenopathy Endocrine : No Polyuria, No Polydipsia, No Temperature Intolerance [facility] Past Medical History Medical History Depression Allergic rhinitis 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 Paternal Grandfather Colon cancer Family/Other FH: mental illness Sister In good health Social History Social History Housing: House Alcohol intake: current Alcohol intake frequency: holidays/special occasions only Patient Tobacco Use Status: Current everyday Tobacco user Tobacco use type: Cigarette Cigarettes Per Day: 5 e-Cigarette/Vaping Use: Never Used Second Hand Smoke Exposure: Yes Advance Directives: No Advance Directives Information Provided: Yes Do you have a plan to hurt others: No Plan service: No Current occupational status: disabled Cognitive needs: Yes (amputation of lower limb) Hearing needs: No Vision needs: No Physical Exam Vital Signs: Vital Signs: Last Vital Signs Temp 97.9 F 05/04/24 03:42 Pulse 103 H 05/04/24 03:42 Resp 16 05/04/24 03:42 BP 187/127 H 05/04/24 03:42 Pulse Ox 98 05/04/24 03:42 O2 Del Method Room Air 05/04/24 03:42 BMI result Body Mass Index 27.4 Const: Other: Appearance: Alert. Oriented X3. No acute distress. Eyes: Pupils equal, round and reactive to light. ENT: Pharynx normal. No septal hematomas bilaterally Neck: Normal inspection. Neck supple. No lymph nodes noted. No crepitus CVS: Normal heart rate and rhythm. Pulses normal. Normal S1 and S2 Respiratory: No respiratory distress. Breath sounds normal. No Wheezing. No rales Abdomen: Soft and nontender. No rigidity. No distention. Skin: Skin warm and dry. Normal skin color. Normal skin turgor. on the left side of the forehead there to ecchymosis, very mild swelling. No lacerations Extremities: No lower extremity edema. No Lacerations. No Rash Neuro: Oriented X 3. No motor deficit. No sensory deficit. Moving all extremities. No slurred speech. CN 2 through 12 grossly intact Psych: calm, cooperative, normal affect Course Course Course Narrative: given patient's ongoing symptoms of headache, memory difficulty, we will go ahead and order the CT scan. Medical Decision Making Medical Decision Making MDM Narrative: CT scan of the head: Encephalomalacia. Patient does have history of CVAs. CT scan shows a nasal fracture. Per patient she has never had history of fractures in the past, likely new. Closed fracture. Patient states that the pain is minimal. Differential Diagnosis Differential Diagnoses: The differential diagnosis associated with the presentation includes ( Contusion, concussion, intracranial bleed) Independent Interpretation I performed an independent interpretation of an: CT Scan Interpretation: There is evolution within left frontal lobe. There is also mild encephalomalacia within the left external capsule. Compensatory mild dilation of the left lateral ventricle. No acute hemorrhage mass effect or midline shift. There is large left mastoid effusion with complete opacification of the left mastoid air cells. There is also effusion within the left middle ear and opacification of the left epitympanic recess. There is right mastoid effusion with incomplete opacification. There is aeration of the right middle ear. Mild deformity left nasal bone. The nasal bones are incompletely included on the field of view. The orbits are within normal limits. No skull fracture. IMPRESSION: No acute intracranial findings. Encephalomalacia within the left frontal lobe and left external capsule sequela from prior infarct or old trauma Bilateral mastoid effusions [id number], left otitis media, possible left cholesteatoma Mild deformity left nasal bone suspicious for nondisplaced fracture new or old, the nasal bones are incompletely included on the field of view. Correlate with physical exam and patient's clinical history Discharge Plan Discharge Clinical Impression: Concussion, Closed fracture nose Patient Disposition: Home, Self-Care Instructions: Concussion (ED), Nasal Fracture (ED) Additional Instructions: Please follow-up with your primary care physician tomorrow. If you have any worsening or new symptoms, please return to the emergency room or call 911 Prescriptions: No Action miscellaneous medical supply Misc See Rx Instructions miscellaneous .COMPLEX Qty: 2 0RF Rx Instructions: miscellaneous; right gel cushion liner for prosthetic miscellaneous medical supply Mis See Rx Instructions miscellaneous .COMPLEX Qty: 2 0RF Rx Instructions: right suction suspension sleeves for prosthetic miscellaneous; [facility] See [facility] Instructions miscellaneous .COMPLEX Qty: 1 0RF Rx Instructions: miscellaneous; right foot shell for prosthetic miscellaneous medical supply [facility] See Rx Instructions miscellaneous .COMPLEX Qty: 1 0RF Rx Instructions: miscellaneous; prosthetic shower leg [facility] miscellaneous DAILY Qty: 1 0RF Rx Instructions: Right Below Knee Replacement Socket cetirizine 10 mg tablet 10 mg PO DAILY PRN (Reason: allergy symptoms) 90 Days Qty: 90 3RF gabapentin 800 mg tablet See Rx Instructions .ROUTE .COMPLEX 90 Days Qty: 360 1RF Rx Instructions: 1 tablet in the morning, 1 tablet in the afternoon and 2 tablets at bedtime, orally clonazepam 1 mg tablet 1 mg PO BID PRN (Reason: anxiety) Qty: 60 0RF albuterol sulfate 90 mcg/actuation aerosol powdr breath activated 2 inh inhalation Q4-6H sertraline 50 mg tablet 50 mg PO DAILY 90 Days Qty: 90 1RF Print Language: Kazakh
[2024-05-04 05:27] VITALS: BP 187/127; PULSE 103; RESP 16; TEMP 36.6; O2SAT 98
== END 2024-05-04 05:28 | disposition home or self-care (01) ==
PROVIDERS: Emergency Provider Emergency Medicine; PCP Internal Medicine
DX: S06.0X0A Concussion without loss of consciousness, initial encounter (principal); S02.2XXA Fracture of nasal bones, initial encounter for closed fracture; R51.9 Headache, unspecified; W06.XXXA Fall from bed, initial encounter; Y93.9 Activity, unspecified; Y92.003 Bedroom of unspecified non-institutional (private) residence as the place of occurrence of the external cause; Y99.8 Other external cause status; Z79.899 Other long term (current) drug therapy
CPT/HCPCS: 70450; 99282; 99284

== ENCOUNTER → 2024-05-04 04:16 | Outpatient (BNV) | payer OTHER, SELFPAY | PROVIDERS: Emergency Provider Emergency Medicine; PCP Internal Medicine; Visit Provider Radiology Diagnostic Radiology | DX: G93.40 Encephalopathy, unspecified (principal); H66.92 Otitis media, unspecified, left ear | CPT/HCPCS: 70450 ==

== ENCOUNTER 2024-06-18 03:02 | Emergency (ER) | payer OTHER, SELFPAY ==
--- NOTE | ~2024-06-18 | CT_ITS ---
CLINICAL HISTORY: ?tia CT head without contrast Comparison: CT/SR - CT HEAD/BRAIN WO IV CON - 05/04/24 04:35 EDT Findings: No intra-axial mass, midline shift, hydrocephalus, or acute hemorrhage. Stable encephalomalacia and gliosis left basal ganglia extending from external capsule to caudate nucleus. Small remote left frontoparietal infarct. No acute appearing alteration in the gordillo-white matter interface. Ex vacuo dilatation anterior body left lateral ventricle. No hydrocephalus. Similar changes of confluence left otomastoiditis and smaller right mastoid effusion. Stable mild deformity of the nasal bones as previously noted. Otherwise skull intact. Globes and orbits intact. IMPRESSION: No acute intracranial process. Stable chronic ischemic changes as noted. Persistent left confluence otomastoiditis and smaller right mastoid effusion. This document has been electronically signed by: Ayo Barrientos MD on 06/18/2024 05:23:22
[2024-06-18 03:05] VITALS: BP 198/120; PULSE 104; RESP 20; TEMP 36.7; O2SAT 100; BMI 27.4
[2024-06-18 03:35] VITALS: BP 207/126; PULSE 99; RESP 12; O2SAT 98
--- NOTE | 2024-06-18 03:47 | ED_ITS ---
HPI - General Adult General Chief complaint: General Medical Stated complaint: Fall Time Seen by Provider: 06/18/24 03:42 Source: patient Mode of arrival: ambulatory Limitations: no limitations History of Present Illness ED Provider: HPI narrative: Patient's history of episodes of confusion fall drop attacks for last 10 years been seen by neurologist had a TIA in the past also had DVT in 2009 , status post right BKA, no shunt was found no seizures had a CTA angio which was also negative patient also taking antianxiety medication patient does have white coat hypertension on arrival patient's blood pressure was 198/120 Related Data Home Medications ?Medication ?Instructions ?Recorded ?Confirmed albuterol sulfate 90 mcg/actuation 2 inh inhalation Q4-6H 08/05/20 02/01/24 breath activated powder inhaler Previous Rx's ?Medication ?Instructions ?Recorded miscellaneous medical supply See Rx Instructions miscellaneous 04/16/20 .COMPLEX #1 ea miscellaneous medical supply See Rx Instructions miscellaneous 04/16/20 .COMPLEX #2 ea miscellaneous medical supply See Rx Instructions miscellaneous 04/16/20 .COMPLEX #2 ea miscellaneous medical supply See Rx Instructions miscellaneous 10/06/20 .COMPLEX #1 ea miscellaneous medical supply 1 ea miscellaneous DAILY #1 ea 10/22/20 sertraline 50 mg tablet 50 mg PO DAILY 90 days #90 tabs 02/01/24 gabapentin 800 mg tablet See Rx Instructions .Route 03/19/24 .COMPLEX 90 days #360 tabs cetirizine 10 mg tablet 10 mg PO DAILY PRN allergy 06/12/24 symptoms 90 days #90 tabs clonazepam 1 mg tablet 1 mg PO BID PRN anxiety #60 tabs 06/12/24 Allergies Allergy/AdvReac Type Severity Reaction Status Date / Time No Known Allergies Allergy Verified 06/18/24 03:12 [No Known Allergies*] Review of Systems 2 Review of Systems: Yes all other systems are reviewed and are negative [facility] Past Medical History Medical History Depression Allergic rhinitis 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 Paternal Grandfather Colon cancer Family/Other FH: mental illness Sister In good health Social History Social History Housing: House Alcohol intake: current Alcohol intake frequency: holidays/special occasions only Patient Tobacco Use Status: Current everyday Tobacco user Tobacco use type: Cigarette Cigarettes Per Day: 5 Smoked in Last 30 Days: Yes e-Cigarette/Vaping Use: Never Used Second Hand Smoke Exposure: Yes Use of substances other than those prescribed or required for medical reasons: No Advance Directives: No Advance Directives Information Provided: Yes Patient : No service: No Current occupational status: disabled Cognitive needs: Yes (amputation of lower limb) Hearing needs: No Vision needs: No Physical Exam ED Vital Signs: Vital Signs - 24 hr 06/18/24 03:05 06/18/24 03:35 Temperature 98.1 F Pulse Rate 104 H 99 Respiratory Rate 20 12 Blood Pressure 198/120 H 207/126 H Pulse Oximetry 100 98 Oxygen Delivery Method Room Air Room Air BMI result Body Mass Index 27.4 Appearance: Alert. Oriented X3. No acute distress. Eyes: PERRLA, No Nystagmus ENT: Pharynx normal. Oral Mucosa moist Neck: Normal inspection. Neck supple. CVS: Normal heart rate and rhythm. Pulses normal. Respiratory: No respiratory distress. Equal air entry bilateral, no wheezing/rales/rhonchi Abdomen: Soft and nontender. Bowel sounds are present, no mass palpable, no CVA tenderness Skin: Skin warm and dry. Normal skin color. Normal skin turgor. Extremities: No lower extremity edema. No calf tenderness right BKA Neuro: Oriented X 3. No motor deficit. No sensory deficit.No cerebellar signs , cranial nerves II-XII intact Medical Decision Making Medical Decision Making MDM Narrative: Patient has frequent drop attacks and mental status changes with previous workups negative with history of anxiety did have history of stroke without much deficits in the past has been to multiple neurologist, patient eloped from the ED after the CT scan without re-evaluation and disposition Differential Diagnosis Differential Diagnoses: The differential diagnosis associated with the presentation includes CVA/TIA/anxiety/drop attack Lab Data MDM Lab Attestation statement: I reviewed the patient's lab results. 06/18/24 03:54 06/18/24 03:54 Labs: Lab Results 06/18/24 Range/Units 03:54 WBC 11.6 H (4.8-10.8) X10*3/uL RBC 5.40 (4.20-5.50) X10*6/uL Hgb 14.6 (12.0-16.0) g/dl Hct 44.4 (37.0-47.0) % MCV 82.2 (80.0-98.0) fL MCH 27.0 (27.0-33.0) pg MCHC 32.9 (31.0-35.0) g/dl RDW 13.2 (11.0-16.0) % Plt Count 251 (160-400) X10*3/uL MPV 10.5 (9.4-12.3) fL Immature Gran % (Auto) 0.2 (0.0-0.4) % Neut % (Auto) 57.0 (45-73) % Lymph % (Auto) 32.7 (20-40) % [place] % (Auto) 6.4 (2-11) % Eos % (Auto) 3.1 (0-4) % Baso % (Auto) 0.6 (0-2) % Lymph # (Auto) 3.8 (1.2-4.9) X10*3/uL [place] # (Auto) 0.7 (0.1-1.2) X10*3/uL Eos # (Auto) 0.4 (0.0-0.4) X10*3/uL Baso # (Auto) 0.1 (0.0-0.2) X10*3/uL Abs Immat Gran (auto) 0.02 (0.00-0.03) X10*3/uL Absolute Neuts (auto) 6.6 (2.0-8.3) x10*3/uL Absolute Nucleated RBC 0.000 (0.0-0.012) X10*3/uL Nucleated RBC % (auto) 0.0 (0.0-0.2) /100WBC PT 11.3 (10.9-12.4) SEC INR 1.0 (0.9-1.1) Sodium 140 (135-145) mmol/L Potassium 5.2 H (3.3-5.1) mmol/L Chloride 106 (96-108) mmol/L Carbon Dioxide 25 (22-29) mmol/L Anion Gap 14 (12-20) BUN 18 H (9-16) mg/dL Creatinine 0.71 (0.5-1.4) mg/dL Estim Creat Clear Calc 93.3 Estimated GFR > 60 Random Glucose 99 (60-115) mg/dL Calcium 9.1 (8.4-10.2) mg/dL Total Bilirubin 0.2 (0.0-1.0) mg/dL AST 46 H (5-31) U/L ALT 21 (0-31) U/L Alkaline Phosphatase 78 (39-117) U/L Total Protein 7.6 (6.5-8.0) g/dL Albumin 4.2 (3.5-5.0) g/dL Independent Interpretation I performed an independent interpretation of an: CT Scan Discharge Plan Discharge Clinical Impression: Altered mental status Patient Disposition: Left W/O Completing Treatment Prescriptions: No Action miscellaneous medical supply Misc See Rx Instructions miscellaneous .COMPLEX Qty: 2 0RF Rx Instructions: miscellaneous; right gel cushion liner for prosthetic miscellaneous medical supply Misc See Rx Instructions miscellaneous .COMPLEX Qty: 2 0RF Rx Instructions: right suction suspension sleeves for prosthetic miscellaneous; miscellaneous medical supply Misc See Rx Instructions miscellaneous .COMPLEX Qty: 1 0RF Rx Instructions: miscellaneous; right foot shell for prosthetic miscellaneous medical supply Misc See Rx Instructions miscellaneous .COMPLEX Qty: 1 0RF Rx Instructions: miscellaneous; prosthetic shower leg miscellaneous medical supply Misc 1 ea miscellaneous DAILY Qty: 1 0RF Rx Instructions: Right Below Knee Replacement Socket gabapentin 800 mg tablet See Rx Instructions .ROUTE .COMPLEX 90 Days Qty: 360 1RF Rx Instructions: 1 tablet in the morning, 1 tablet in the afternoon and 2 tablets at bedtime, orally cetirizine 10 mg tablet 10 mg PO DAILY PRN (Reason: allergy symptoms) 90 Days Qty: 90 4RF clonazepam 1 mg tablet 1 mg PO BID PRN (Reason: anxiety) Qty: 60 1RF albuterol sulfate 90 mcg/actuation aerosol powdr breath activated 2 inh inhalation Q4-6H sertraline 50 mg tablet 50 mg PO DAILY 90 Days Qty: 90 1RF Discharge Date/Time: 06/18/24 05:54
[2024-06-18 03:58] LABS: Basophils Absolute Auto 0.1 X10*3/uL (0.0-0.2); Basophils Percent Auto 0.6 % (0-2); Eosinophils Absolute Auto 0.4 X10*3/uL (0.0-0.4); Eosinophils Percent Auto 3.1 % (0-4); Hematocrit 44.4 % (37.0-47.0); Hemoglobin 14.6 g/dl (12.0-16.0); Imm Gran Abs Auto 0.02 X10*3/uL (0.00-0.03); Imm Gran Pct Auto 0.2 % (0.0-0.4); Lymphocytes Absolute Auto 3.8 X10*3/uL (1.2-4.9); Lymphocytes Percent Auto 32.7 % (20-40); MANUAL DIFF FLAG NO; Mean Corpuscular HGB Conc 32.9 g/dl (31.0-35.0); Mean Corpuscular Volume 82.2 fL (80.0-98.0); Mean Platelet Volume 10.5 fL (9.4-12.3); Monocytes Absolute Auto 0.7 X10*3/uL (0.1-1.2); Monocytes Percent Auto 6.4 % (2-11); Neutrophils Absolute Auto 6.6 x10*3/uL (2.0-8.3); Platelet Count 251 X10*3/uL (160-400); Red Cell Distribution Width 13.2 % (11.0-16.0); White Blood Count 11.6 X10*3/uL (4.8-10.8)
[2024-06-18 04:05] LABS: Prothrombin Time 11.3 SEC (10.9-12.4)
[2024-06-18 04:17] LABS: Alanine Aminotransferase 21 U/L (0-31); Albumin Level 4.2 g/dL (3.5-5.0); Alkaline Phosphatase 78 U/L (39-117); Anion Gap 14 (12-20); Aspartate Amino Transferase 46 U/L (5-31); Bilirubin Total 0.2 mg/dL (0.0-1.0); Blood Urea Nitrogen 18 mg/dL (9-16); Calcium 9.1 mg/dL (8.4-10.2); Carbon Dioxide 25 mmol/L (22-29); Chloride 106 mmol/L (96-108); Creatinine Clr Calc Pharmacy 93.3; Estimated Glomerular Filt Rate > 60; Glucose Random 99 mg/dL (60-115); Potassium 5.2 mmol/L (3.3-5.1); Sodium 140 mmol/L (135-145); Total Protein 7.6 g/dL (6.5-8.0)
--- NOTE | 2024-06-18 05:18 | PC.NURSE ---
Addendum entered by Jumana Bob RN 06/18/24 05:53: attempted to call pt using number on file, no answer. pt did not return to room. left without completing teatment. Original Note: pt noted not to be in the room at this time, MD Gunn aware. Will recheck room for pt return
== END 2024-06-18 05:54 | disposition left against medical advice (07) ==
PROVIDERS: Emergency Provider Internal Medicine; PCP Internal Medicine
DX: R41.82 Altered mental status, unspecified (principal); R51.9 Headache, unspecified; F17.210 Nicotine dependence, cigarettes, uncomplicated; Z79.899 Other long term (current) drug therapy; Z51.81 Encounter for therapeutic drug level monitoring; Z86.73 Personal history of transient ischemic attack (TIA), and cerebral infarction without residual deficits
CPT/HCPCS: 36415; 70450; 80053; 85025; 85610; 99284

== ENCOUNTER → 2024-06-18 03:57 | Outpatient (BNV) | payer OTHER, SELFPAY | PROVIDERS: Emergency Provider Internal Medicine; PCP Internal Medicine; Visit Provider Radiology Diagnostic Radiology | DX: I67.82 Cerebral ischemia (principal); H74.8X3 Other specified disorders of middle ear and mastoid, bilateral | CPT/HCPCS: 70450 ==

== ENCOUNTER 2024-09-07 15:42 | Outpatient (AMB) | payer OTHER, SELFPAY ==
--- OUTSIDE RECORDS SUMMARY | 2024-09-07 15:45 | XMS_ITS | Clinical Summary ---
Author Organization Formerly [facility] Address [address] [place] [address] Care Team Providers Care Reception Manager Name Role Phone Yvan Amaro MD Primary Care Provider [phone] Medications No known medications Active Problems No known active problems Social History Tobacco Use Types Packs/Day Years Used Date Smoking Tobacco: Never Assessed Sex and Gender Information Value Date Recorded Sex Assigned at Female 03/06/2021 1:37 PM EST Gender Identity Not on file Sexual Orientation Not on file Job Start Date Occupation Industry Not on file Not on file Not on file Last Filed Vital Signs Vital Sign Reading Time Taken Comments Blood Pressure 179/115 03/06/2021 1:45 PM EST Pulse 94 03/06/2021 1:45 PM EST Temperature 37.2 C (99 F) 03/06/2021 1:45 PM EST Respiratory Rate 16 03/06/2021 1:45 PM EST Oxygen Saturation 99% 03/06/2021 1:45 PM EST Inhaled Oxygen Concentration - - Weight 77.1 kg (170 lb) 03/06/2021 1:45 PM EST Height 160 cm (5' 3 ) 03/06/2021 1:45 PM EST Body Mass Index 30.11 03/06/2021 1:45 PM EST Plan of Treatment Not on file Care Teams Reception Manager Relationship Specialty Start Date End Date Yvan Amaro MD [address] [place] [address] [place] [address] PCP - General Internal Medicine 03/06/21
--- OUTSIDE RECORDS SUMMARY | 2024-09-07 15:45 | XMS_ITS | Clinical Summary ---
[facility] [address] [place] [address] Care Team Providers Care Foam Rubber Curer Name Role Phone Yvan Amaro MD Primary Care Provider [phone] Medical History Medical History Date Comments Tobacco use disorder 03/14/2006 DX:Tobacco use disorder Headache(784.0) 03/14/2006 DX:Headache(784. 0) Lumbago 03/30/2007 DX:Lumbago History of DVT (deep vein thrombosis) DX:History of DVT (deep vein thrombosis) Status post below knee amput ation of right lower extremity (CMS/HCC V24, CMS/HCC V28) DX:Status post below knee am putation of right lower extremity (HCC) Anxiety DX:Anxiety Chronic use of opiate for th erapeutic purpose DX:Chronic use of opiate for therapeutic purpose; COMMENT: uses for chronic low back pain Falling DX:Falling Family History Relation Name Status Comments Brother Alive high cholestero l Father Alive heart attack in his 30's Mother Alive Sister Alive Social History Tobacco Use Types Packs/Day Years Used Date Smoking Tobacco: Never Assessed Cigarettes Alcohol Use Standard Drinks/Week Comments No 0 (1 standard drink = 0.6 oz pur e alcohol) Comments Unknown Sex and Gender Information Value Date Recorded Sex Assigned at Not on file Legal Sex Female 6:25 PM EST Gender Identity Not on file Sexual Orientation Not on file Obstetrics History Plan of Treatment Health Maintenance Due Date Last Done Comments Breast Cancer Screening 1981 DTaP,Tdap,and Td Vaccines (1 - Tdap) 2000 Hepatitis B Vaccines (1 of 3 - 19+ 3-dose series) 2000 Cervical Cancer Screening: P ap Smear 2002 COVID-19 Vaccine (2023-2 5 season) 2023 Influenza Vaccine (#1) 2024 HIB Vaccines Aged Out No longer eligi ble based on patient's age to complete this topic HPV Vaccines Aged Out No longer eligi ble based on patient's age to complete this topic Hepatitis A Vaccines Aged Out No long er eligible based on patient's age to complete this topic IPV Vaccines Aged Out No longer eligi ble based on patient's age to complete this topic MMR Vaccines Aged Out No longer eligi ble based on patient's age to complete this topic Meningococcal ACWY Vaccine Aged Out N o longer eligible based on patient's age to complete this topic Meningococcal B Vaccine Aged Out No l onger eligible based on patient's age to complete this topic Pneumococcal Vaccine: Pediat rics (0 to 5 Years) and At-Risk Patients (6 to 49 Years) Aged Out No longer eligible b ased on patient's age to complete this topic RSV Immunization Patients Un charlie 20 months Aged Out No longer eligible b ased on patient's age to complete this topic Varicella Vaccines Aged Out No longer eligible based on patient's age to complete this topic Care Teams Foam Rubber Curer Relationship Specialty Start Date End Date Yvan Amaro MD [address] [place] [address] Dr [address] [place], [place] PCP - General Internal Medicine 04/16/20
[2024-09-07 15:47] VITALS: BP 150/100; PULSE 100; O2SAT 96; BMI 29.9
--- NOTE | 2024-09-07 15:47 | MHC.PC.OV ---
Vital Signs 09/07/24 15:47 Height 5 ft 2 in Weight 163 lb 8 oz BMI 29.9 BP 150/100 H Blood Pressure Location Lt brachial Position Sitting Pulse 100 Pulse Source Pulse Oximeter Pulse Oximetry (%) 96 Oxygen Delivery Method Room Air Intake Visit Reasons: 3 month f/u Front Office Director Required: No Accompanied by: Self / Same As Patient Allergies No Known Allergies (No Known Allergies*) Allergy (Verified 09/07/24 16:06) Medication List - Last Reconciled 09/07/24 by Yvan Amaro MD albuterol sulfate 90 mcg/actuation 2 inhalations inhalation Q4-6H cetirizine 10 mg PO DAILY PRN 90 days clonazepam 1 mg PO BID PRN gabapentin 1 tablet in the morning, 1 tablet in the afternoon and 2 tablets at bedtime, orally 90 days miscellaneous medical supply miscellaneous; right gel cushion liner for prosthetic NS miscellaneous medical supply right suction suspension sleeves for prosthetic miscellaneous; NS miscellaneous medical supply miscellaneous; right foot shell for prosthetic NS miscellaneous medical supply 1 ea miscellaneous DAILY miscellaneous medical supply miscellaneous; prosthetic shower leg sertraline 50 mg PO DAILY 90 days Tobacco use date assessed: 09/07/24 Dental Screening Dental Screen Date: 09/07/24 Did you have a dental visit in the last 12 months?: Yes Did you have a dental problem in the last 6 months where you did not have access to dental care?: No Was dental information given to patient?: Patient has dentist HPI 3 month f/u HPI Details Patient comes in today for her follow up visit She reportedly went to the ER back in late May 2024 following a fall She was undergoing further evaluation and had a head CT done but patient apparently eloped from the ER after her CAT scan and her evaluation was therefore incomplete She apparently has not sought medical attention again until today States that she currently feels okay but continues to experience frequent dizziness and occasional headaches She denies any chest pains, no increased shortness of breath No nausea/vomiting, no abdominal pain No change in bowel habits noted [facility] Medical History Depression Allergic rhinitis 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 Paternal Grandfather Colon cancer Family/Other FH: mental illness Sister In good health Social History Housing: House Alcohol intake: current Alcohol intake frequency: holidays/special occasions only Patient Tobacco Use Status: Current everyday Tobacco user Tobacco use type: Cigarette Cigarettes Per Day: 5 e-Cigarette/Vaping Use: Never Used Second Hand Smoke Exposure: Yes service: No Current occupational status: disabled Current occupational exposures/hazards: No Cognitive needs: Yes (amputation of lower limb) Hearing needs: No Vision needs: No Questionnaire PHQ-9 Over the last 2 weeks, how often have you been bothered by any of the following problems? 1. Little interest or pleasure in doing things: several days 2. Feeling down, depressed, or hopeless: not at all 3. Trouble falling or staying asleep, or sleeping too much: several days 4. Feeling tired or having little energy: several days 5. Poor appetite or overeating: not at all 6. Feeling bad about yourself - or that you are a failure or have let yourself or your family down: not at all 7. Trouble concentrating on things, such as reading the newspaper or watching television: several days 8. Moving or speaking so slowly that other people could have noticed. Or the opposite - being so fidgety or restless that you have been moving around a lot more than usual: not at all 9. Thoughts that you would be better off or of hurting yourself in some way: not at all Total score: 4 Depression Screening Interpretation: Positive Depression Screening Follow-up: Existing condition and In treatment Depression Screening Done: Yes 45013 - PHQ-9 Billing: Yes Source: Developed by Drs. Rodger Mcgreogr, Lucero Hernandes, Lawrence Ramsey and colleagues, with an educational froilan from [employer]. Thrive Questionnaire Date Thrive assessed: 09/07/24 I am a: Patient What is your living situation today?: I have a steady place to live Within the past 12 months, did the food you bought not last and you didn't have the money to get more?: Never true Within the past 12 months, did you worry whether your food would run out before you got money to buy more?: Never true Do you have trouble paying for medicines?: No Do you have trouble getting transportation to medical appointments?: No Do you have trouble paying your heating and electricity bill?: Yes Do you have trouble taking care of your child, family member or friend?: I choose not to answer this question Do you have trouble with day-to-day activities such as bathing, preparing meals, shopping, managing finances, etc.?: Yes Are you currently unemployed and looking for a job?: I choose not to answer this question Are you interested in more education?: I choose not to answer this question Please select the resources that you would like help with: Care for elder or disabled and Daily support Currently or been in a relationship where the following occur: No concerns reported THRIVE Score: 1 AUDIT C Alcohol Use Questionnaire (AUDIT-C) 1. How often do you have a drink containing alcohol?: Monthly or less 2. How many drinks containing alcohol do you have on a typical day when you are drinking?: 1 or 2 3. How often do you have six or more drinks on one occasion?: Never Total Score: 1 Score Reviewed/Action Taken: Yes SANDRA-7 AMB Questionnaire SANDRA-7 Date SANDRA - 7 assessed: 09/07/24 Feeling nervous, anxious, or on edge: 2 = More than half the days Not being able to stop or control worryin = More than half the days Worrying too much about different things: 3 = Nearly every day Trouble relaxin = Nearly every day Being so restless that it is hard to sit still: 3 = Nearly every day Becoming easily annoyed or irritable: 0 = Not at all Feeling afraid as if something awful might happen: 1 = Several days Total SANDRA-7 score (0-4 normal; 5-9 mild; 10-14 moderate; 15-21 severe): 14 Source: Developed by Lucero Laura.W. Cecilio, Lawrence Ramsey and colleagues, with an educational froilan from [employer]. Review of Systems Const Denies chills, Denies difficulty sleeping, Reports fatigue, Denies fever(s) and Denies headache(s) ENT Denies dysphagia, Denies dizziness, Denies otalgia, Denies headache(s), Denies neck pain, Denies odynophagia and Denies sore throat Card Denies chest pain, Reports syncope (on and off), Denies rapid heart rate, Denies irregular heart rhythm, Denies palpitations and Denies dyspnea Resp Denies chest congestion, Denies cough and Denies dyspnea GI Denies abdominal pain, Denies constipation, Denies dysphagia, Denies heartburn, Denies diarrhea, Denies nausea, Denies odynophagia and Denies vomiting Denies difficulty voiding, Denies dysuria and Denies urinary urgency Musc Reports back pain (over the lower back - chronic), Denies arthralgias and Denies neck pain Skin/Breast Denies rash Neuro Denies dizziness, Reports syncope (on and off), Denies headache(s) and Denies paresthesias Psych Reports anxiety and Reports depression Endo Reports fatigue and Denies palpitations Bill/Lymph Denies easy bruising Physical exam (Primary Care) Vital Signs: Last Vital Signs Pulse 100 09/07/24 15:47 BP 150/100 H 09/07/24 15:47 Pulse Ox 96 09/07/24 15:47 Oxygen Delivery Method Room Air 09/07/24 15:47 BMI result Body Mass Index 29.9 Tobacco/Smoking Status: Tobacco use Status Tobacco use date assessed 09/07/24 09/07/24 15:52 Patient Tobacco Use Status Current everyday Tobacco 09/07/24 15:52 Tobacco use type Cigarette 09/07/24 15:52 e-Cigarette/Vaping Use Never Used 09/07/24 15:52 PHQ-9: PHQ-9 Score PHQ-9: Total score 4 09/07/24 16:07 Depression Screening Interpretation: Positive Depression Screening Follow-up: Existing condition and In treatment Thrive Assessment: Date of Thrive Assessment Date Thrive assessed 09/07/24 09/07/24 15:52 Currently or been in a relationship where the following occur: No concerns reported Const General: no acute distress and alert HENMT Ears: TM's normal bilaterally and EAC's normal Throat: Yes posterior oropharynx normal and Yes tonsils normal (no TP congestion) Neck Neck: Yes no lymphadenopathy and Yes supple Thyroid: Thyroid normal Resp Auscultation: clear to auscultation bilaterally, no rales and no wheezes Cardio Rate: regular rate Rhythm: regular rhythm Heart sounds: no murmurs GI Palpation (GI): Soft to palpation and nontender Auscultation: normal bowel sounds General: Yes no CVA tenderness Back/Spine/Pelvis Back: no CVA tenderness Thoracic/Lumbar Spine: lumbar spinal tenderness Skin Rashes: no rashes Extrem General: Yes no clubbing, cyanosis or edema Results Reviewed Results Reviewed: Laboratory Tests 06/18/24 03:54 WBC 11.6 H Hgb 14.6 Hct 44.4 Plt Count 251 Sodium 140 Potassium 5.2 H Creatinine 0.71 Estimated GFR > 60 Random Glucose 99 Calcium 9.1 AST 46 H ALT 21 Coding Level of Care Code Est Pt Level 4 (62855) Diagnoses Altered mental status, unspecified altered mental status type R41.82 Altered mental status type: unspecified Memory changes R41.3 White coat syndrome with diagnosis of hypertension I10 Pure hypercholesterolemia E78.00 Allergic rhinitis, unspecified seasonality, unspecified trigger J30.9 Allergic rhinitis trigger: unspecified Allergic rhinitis seasonality: unspecified Spondylosis of lumbar region without myelopathy or radiculopathy M47.816 Cerebral infarction, unspecified mechanism I63.9 Cerebral infarction mechanism: unspecified mechanism History of right below knee amputation Z89.511 Phantom pain following amputation of lower limb G54.6 Anxiety F41.9 Episode of recurrent major depressive disorder, unspecified depression episode severity F33.9 Depression Type: major depressive disorder Major depression recurrence: recurrent Active/Remission status: currently active Major depression episode severity: unspecified Smoker F17.200 Overweight (BMI 25.0-29.9) E66.3 Additional Codes PHQ-9 - 90342 - PHQ-9 Billing: Yes ([id number]) Assessment & Plan Assessment & Plan (1) Altered mental status: Code(s): R41.82 - Altered mental status, unspecified Category: Medical Qualifiers: Altered mental status type: unspecified Qualified Code(s): R41.82 - Altered mental status, unspecified Plan: Patient reports ongoing symptoms of dizziness/lightheadedness and what she describes as episodes of confusion She was seen at the ER in late May 2024 for further evaluation following a fall Head CT done at the time came back negative for acute changes but patient reportedly eloped from the ER and did not complete her evaluation Will send her for labs LYNDSAY for further evaluation We will also refer her to neurology for further evaluation and management (2) Memory changes: Code(s): R41.3 - Other amnesia Category: Medical Plan: Will refer patient to Neurology for further evaluation and management (3) White coat syndrome with diagnosis of hypertension: Code(s): I10 - Essential (primary) hypertension Category: Medical Plan: Reinforced low sodium diet - goal is systolic BP of 120 mm or less She was on Labetalol 600 mg BID in the past but does not appear to be on it at present - she is unclear as to when she actually stopped taking her blood pressure medication but thinks it was a few months ago Patient has white coat syndrome and her blood pressure have been consistently elevated during most of her office visits here over the years Her systolic blood pressure at home usually runs from 110 to 120 mm - she is advised to continue monitoring her BP regularly She was on Zestoretic back in 2015 but Rx was discontinued following a bout of?hyPOtension?and acute renal failure and she has not taken any BP meds since She was started on Clonidine for anxiety a couple of years ago but she was then advised to stop taking this a few months ago when she was admitted at [facility] due to concerns about potential adrenal insufficiency She is instructed to continue monitoring her blood pressure regularly (4) Pure hypercholesterolemia: Code(s): E78.00 - Pure hypercholesterolemia, unspecified Category: Medical Plan: Reinforced low cholesterol diet She used to take Atorvastatin but has not taken this in some time now Will have her recheck her labs and fasting lipids LYNDSAY for follow up (5) Allergic rhinitis: Code(s): J30.9 - Allergic rhinitis, unspecified Category: Medical Qualifiers: Allergic rhinitis trigger: unspecified Allergic rhinitis seasonality: unspecified Qualified Code(s): J30.9 - Allergic rhinitis, unspecified Plan: Continue Cetirizine 10 mg QD PRN (was been taking Hydroxyzine in the past with little relief of symptoms) She was also previously referred to vice president of human resources for further evaluation and management as she may benefit from allergy testing (6) Spondylosis of lumbar region without myelopathy or radiculopathy: Code(s): M47.816 - Spondylosis without myelopathy or radiculopathy, lumbar region Category: Medical Plan: Reinforced activity and weight-lifting restrictions to avoid aggravating her back pain MRI of the lumbar spine done back on 05/12/2020 that revealed (+) mild facet arthropathy in the lower lumbar spine at L4-L5 and L5-S1, with no central canal or neural foraminal stenosis Follow up with pain management as scheduled or as needed (7) Cerebral infarction: Code(s): I63.9 - Cerebral infarction, unspecified Category: Medical Qualifiers: Cerebral infarction mechanism: unspecified mechanism Qualified Code(s): I63.9 - Cerebral infarction, unspecified Plan: Chronic left cerebral infarctions are seen on brain MRI done on 03/10/2020 Follow up with neurology as scheduled (8) History of right below knee amputation: Comment: 04/2009 - due to DVT Code(s): Z89.511 - Acquired absence of right leg below knee Category: Surgical Plan: She currently has a right leg prosthesis so she is able to move around on her own reasonably well (9) Phantom pain following amputation of lower limb: Code(s): G54.6 - Phantom limb syndrome with pain Category: Medical Plan: Continue Gabapentin 800 mg every 8 hours Follow up with Pain Management as scheduled (10) Anxiety: Code(s): F41.9 - Anxiety disorder, unspecified Category: Medical Plan: Patient reports experiencing increased anxiety since her boyfriend's abrupt passing last year and she was referred to psychiatry for GRIEF COUNSELING, per her request Continue Sertraline 50 mg QD and Clonazepam 1 mg BID PRN (11) Depression: Code(s): F32.A - Depression, unspecified Category: Medical Qualifiers: Depression Type: major depressive disorder Major depression recurrence: recurrent Active/Remission status: currently active Major depression episode severity: unspecified Qualified Code(s): F33.9 - Major depressive disorder, recurrent, unspecified Plan: Continue Sertraline 50 mg QD (12) Smoker: Code(s): F17.200 - Nicotine dependence, unspecified, uncomplicated Category: Social Hx Plan: Patient is counseled again on smoking cessation (13) Overweight (BMI 25.0-29.9): Code(s): E66.3 - Overweight Category: Medical Plan: Reinforced diet/exercise as tolerated/lose weight Plan Follow-up in 3 months Orders: Orders Complete Blood Count Auto Diff 09/07/24 D64.9 - Anemia, unspecified Lipid Panel 09/07/24 E78.00 - Pure hypercholesterolemia, unspecified UA CC w/rflx Micro + Cult 09/07/24 R30.0 - Dysuria Vitamin D 25-OH Total 09/07/24 E55.9 - Vitamin D deficiency, unspecified Comprehensive [place]. Panel Fast 09/07/24 E78.00 - Pure hypercholesterolemia, unspecified TSH reflex Free T4 09/07/24 E78.00 - Pure hypercholesterolemia, unspecified Vitamin B12 and Folate 09/07/24 E53.8 - Deficiency of other specified B group vitamins Referrals Neurology Referral R41.3 - Other amnesia, R41.82 - Altered mental status, unspecified
== END 2024-09-07 16:18 | disposition home or self-care (01) ==
LOC: HO.HMCH 15:43
PROVIDERS: PCP Internal Medicine; Visit Provider Internal Medicine
DX: R41.82 Altered mental status, unspecified (principal); I63.9 Cerebral infarction, unspecified; Z89.511 Acquired absence of right leg below knee; G54.6 Phantom limb syndrome with pain; R41.3 Other amnesia; I10 Essential (primary) hypertension; E78.00 Pure hypercholesterolemia, unspecified; J30.9 Allergic rhinitis, unspecified; M47.816 Spondylosis without myelopathy or radiculopathy, lumbar region; F41.9 Anxiety disorder, unspecified; F33.9 Major depressive disorder, recurrent, unspecified; F17.200 Nicotine dependence, unspecified, uncomplicated

== ENCOUNTER → 2024-09-07 15:42 | Outpatient (BNVA) | payer OTHER, SELFPAY | PROVIDERS: PCP Internal Medicine; Visit Provider Internal Medicine | DX: R41.82 Altered mental status, unspecified (principal); R41.3 Other amnesia; I10 Essential (primary) hypertension; E78.00 Pure hypercholesterolemia, unspecified; J30.9 Allergic rhinitis, unspecified; M47.816 Spondylosis without myelopathy or radiculopathy, lumbar region; G54.6 Phantom limb syndrome with pain; F41.9 Anxiety disorder, unspecified; F33.9 Major depressive disorder, recurrent, unspecified; E66.3 Overweight; Z68.29 Body mass index [BMI] 29.0-29.9, adult; F17.210 Nicotine dependence, cigarettes, uncomplicated; Z86.73 Personal history of transient ischemic attack (TIA), and cerebral infarction without residual deficits; Z89.511 Acquired absence of right leg below knee; Z13.31 Encounter for screening for depression; Z13.39 Encounter for screening examination for other mental health and behavioral disorders | CPT/HCPCS: 96127; 99212 ==

== ENCOUNTER 2024-12-10 14:20 | Outpatient (AMB) | payer OTHER, SELFPAY ==
[2024-12-10 14:38] VITALS: BP 160/130; PULSE 113; O2SAT 97; BMI 31.5
--- NOTE | 2024-12-10 14:38 | MHC.PC.OV ---
Vital Signs 12/10/24 14:38 Height 5 ft 2 in Weight 172 lb 2 oz BMI 31.5 BP 160/130 H Blood Pressure Location Lt brachial Position Sitting Pulse 113 H Pulse Source Pulse Oximeter Pulse Oximetry (%) 97 Oxygen Delivery Method Room Air Intake Visit Reasons: 3 month Pot Washer Required: No Accompanied by: Self / Same As Patient Allergies No Known Allergies (No Known Allergies*) Allergy (Verified 12/10/24 15:09) Medication List - Last Reconciled 12/10/24 by Yvan Amaro MD albuterol sulfate 90 mcg/actuation 2 inhalations inhalation Q4-6H cetirizine 10 mg PO DAILY PRN 90 days clonazepam 1 mg PO BID PRN gabapentin 1 tablet in the morning, 1 tablet in the afternoon and 2 tablets at bedtime, orally 90 days miscellaneous medical supply miscellaneous; right gel cushion liner for prosthetic NS miscellaneous medical supply right suction suspension sleeves for prosthetic miscellaneous; NS miscellaneous medical supply miscellaneous; right foot shell for prosthetic NS miscellaneous medical supply 1 ea miscellaneous DAILY miscellaneous medical supply miscellaneous; prosthetic shower leg sertraline 50 mg PO DAILY 90 days Tobacco use date assessed: 12/10/24 Dental Screening Dental Screen Date: 12/10/24 Did you have a dental visit in the last 12 months?: Yes Did you have a dental problem in the last 6 months where you did not have access to dental care?: No Was dental information given to patient?: Patient has dentist HPI 3 month HPI Details Patient comes in today for her follow up visit Thinks that she may have a sinus infection as she has been experiencing increased sinus / facial pain, on and off headaches and that she has been experiencing a recurrent popping sensation in both of her ears over the past 2 weeks She denies any fever or sore throat; denies any dizziness Denies any chest pains, no increased SOB No nausea/vomiting, no abdominal pain No change in bowel habits noted States that she stopped taking her Sertraline a few weeks ago as she was supposedly feeling more depressed while she was taking the medication Needs a few of her Rx refilled She has had no follow-up labs done since May 2024 States that she is currently still waiting for her right leg prosthesis replacement and was advised by her medical supplier that due to insurance requirements, for them to be able to complete her delivery and be reimbursed, she has to have updated documentations in her most recent OV notes about her current situations, including her ADLs, employment status, etc - patient brought in a list of her current requirements She is currently disabled and states that she has not been able to work for several years now due to her multiple conditions States that she is a single mom and has a 3 y/o toddler to look after and raise on her own Her recreational activities are limited to just going to the park with her 3-year-old daughter when time allows due to her disability 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 She has had her current right leg prosthesis since 2020 and states that it is wearing out and she needs a new replacement as the edges of the prosthesis are now rubbing against her stump and causing recurrent irritation and pain on her stump States that she does not need any other ambulatory aid as long as she has her prosthesis on States that her goal is to continue to be able to stay mobile and active as best as she can - her current activity level is around K-4 [facility] Medical History Depression Allergic rhinitis 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 Paternal Grandfather Colon cancer Family/Other FH: mental illness Sister In good health Social History Housing: House Alcohol intake: current Alcohol intake frequency: holidays/special occasions only Patient Tobacco Use Status: Current everyday Tobacco user Tobacco use type: Cigarette Cigarettes Per Day: 5 e-Cigarette/Vaping Use: Never Used Second Hand Smoke Exposure: Yes service: No Current occupational status: disabled Current occupational exposures/hazards: No Cognitive needs: Yes (amputation of lower limb) Hearing needs: No Vision needs: No Questionnaire PHQ-9 Over the last 2 weeks, how often have you been bothered by any of the following problems? 1. Little interest or pleasure in doing things: several days 2. Feeling down, depressed, or hopeless: not at all 3. Trouble falling or staying asleep, or sleeping too much: several days 4. Feeling tired or having little energy: several days 5. Poor appetite or overeating: not at all 6. Feeling bad about yourself - or that you are a failure or have let yourself or your family down: not at all 7. Trouble concentrating on things, such as reading the newspaper or watching television: several days 8. Moving or speaking so slowly that other people could have noticed. Or the opposite - being so fidgety or restless that you have been moving around a lot more than usual: not at all 9. Thoughts that you would be better off or of hurting yourself in some way: not at all Total score: 4 Depression Screening Interpretation: Positive Depression Screening Follow-up: Existing condition and In treatment Depression Screening Done: Yes 98620 - PHQ-9 Billing: Yes Source: Developed by Drs. Rodger Mcgregor, Lucero Hernandes, Lawrence Ramsey and colleagues, with an educational froilan from [employer]. Thrive Questionnaire Date Thrive assessed: 12/10/24 I am a: Patient What is your living situation today?: I have a steady place to live Within the past 12 months, did the food you bought not last and you didn't have the money to get more?: Never true Within the past 12 months, did you worry whether your food would run out before you got money to buy more?: Never true Do you have trouble paying for medicines?: No Do you have trouble getting transportation to medical appointments?: No Do you have trouble paying your heating and electricity bill?: Yes Do you have trouble taking care of your child, family member or friend?: I choose not to answer this question Do you have trouble with day-to-day activities such as bathing, preparing meals, shopping, managing finances, etc.?: Yes Are you currently unemployed and looking for a job?: I choose not to answer this question Are you interested in more education?: I choose not to answer this question Currently or been in a relationship where the following occur: No concerns reported THRIVE Score: 1 AUDIT C Alcohol Use Questionnaire (AUDIT-C) 1. How often do you have a drink containing alcohol?: Monthly or less 2. How many drinks containing alcohol do you have on a typical day when you are drinking?: 1 or 2 3. How often do you have six or more drinks on one occasion?: Never Total Score: 1 Score Reviewed/Action Taken: Yes SANDRA-7 AMB Questionnaire SANDRA-7 Date SANDRA - 7 assessed: 09/07/24 Source: Developed by Drs. Rodger Mcgregor, Lucero Hernandes, Lawrence Ramsey and colleagues, with an educational froilan from [employer]. Review of Systems Const Denies chills, Denies difficulty sleeping, Reports fatigue, Denies fever(s) and Reports headache(s) (recurrent over the past 2 weeks) ENT Denies dysphagia, Denies dizziness, Denies otalgia (but reports (+) recurrent popping sensations in both ears), Reports headache(s) (recurrent over the past 2 weeks), Reports nasal congestion (increased over the past 2 weeks), Denies neck pain, Denies odynophagia, Reports sinus pain and Denies sore throat Card Denies chest pain, Denies rapid heart rate, Denies irregular heart rhythm, Denies palpitations and Denies dyspnea Resp Denies chest congestion, Denies cough, Denies dyspnea and Denies wheezing GI Denies abdominal pain, Denies constipation, Denies dysphagia, Denies heartburn, Denies diarrhea, Denies nausea, Denies odynophagia and Denies vomiting Denies difficulty voiding, Denies dysuria and Denies urinary urgency Musc Reports back pain (over the lower back - chronic), Denies arthralgias and Denies neck pain Skin/Breast Denies rash Neuro Denies dizziness, Reports headache(s) (recurrent over the past 2 weeks) and Denies paresthesias Psych Reports anxiety and Reports depression Endo Reports fatigue and Denies palpitations Bill/Lymph Denies easy bruising Aller/Immun Denies wheezing Physical exam (Primary Care) Vital Signs: Last Vital Signs Pulse 113 H 12/10/24 14:38 BP 160/130 H 12/10/24 14:38 Pulse Ox 97 12/10/24 14:38 Oxygen Delivery Method Room Air 12/10/24 14:38 BMI result Body Mass Index 31.5 Tobacco/Smoking Status: Tobacco use Status Tobacco use date assessed 12/10/24 12/10/24 14:48 Patient Tobacco Use Status Current everyday Tobacco 12/10/24 14:48 Tobacco use type Cigarette 12/10/24 14:48 e-Cigarette/Vaping Use Never Used 12/10/24 14:48 Depression Screening Interpretation: Positive Depression Screening Follow-up: Existing condition and In treatment Thrive Assessment: Date of Thrive Assessment Date Thrive assessed 09/06/24 12/10/24 14:48 Currently or been in a relationship where the following occur: No concerns reported Const General: no acute distress and alert HENMT Ears: EAC's normal and TM abnormal bulging bilateral; not with effusion Face and sinus: Yes sinus tenderness (bilateral) Throat: Yes posterior oropharynx normal, Yes tonsils normal (no TP congestion) and Yes postnasal drainage Neck Neck: Yes supple and No lymphadenopathy Thyroid: Thyroid normal Resp Auscultation: clear to auscultation bilaterally, no rales and no wheezes Cardio Rate: regular rate Rhythm: regular rhythm Heart sounds: no murmurs GI Palpation (GI): Soft to palpation and nontender Auscultation: normal bowel sounds General: Yes no CVA tenderness Back/Spine/Pelvis Back: no CVA tenderness Thoracic/Lumbar Spine: lumbar spinal tenderness Skin Rashes: no rashes Extrem Other: (+) prosthetic right leg - S/P Right BKA General: Yes no clubbing, cyanosis or edema (of the left lower extremity) Coding Level of Care Code Est Pt Level 4 (01606) Diagnoses Altered mental status, unspecified altered mental status type R41.82 Altered mental status type: unspecified Cerebral infarction, unspecified mechanism I63.9 Cerebral infarction mechanism: unspecified mechanism White coat syndrome with diagnosis of hypertension I10 Pure hypercholesterolemia E78.00 Allergic rhinitis, unspecified seasonality, unspecified trigger J30.9 Allergic rhinitis seasonality: unspecified Allergic rhinitis trigger: unspecified Acute non-recurrent sinusitis, unspecified location J01.90 Sinusitis location: unspecified location Chronicity: acute Recurrence: non-recurrent Spondylosis of lumbar region without myelopathy or radiculopathy M47.816 History of right below knee amputation Z89.511 Phantom pain following amputation of lower limb G54.6 Anxiety F41.9 Episode of recurrent major depressive disorder, unspecified depression episode severity F33.9 Active/Remission status: currently active Depression Type: major depressive disorder Major depression episode severity: unspecified Major depression recurrence: recurrent Smoker F17.200 Overweight (BMI 25.0-29.9) E66.3 Additional Codes PHQ-9 - 24471 - PHQ-9 Billing: Yes ([id number]) Assessment & Plan Assessment & Plan (1) Altered mental status: Code(s): R41.82 - Altered mental status, unspecified Category: Medical Qualifiers: Altered mental status type: unspecified Qualified Code(s): R41.82 - Altered mental status, unspecified Plan: Patient reports (+) frequent symptoms of dizziness/lightheadedness and what she describes as episodes of confusion but notes that these have not gotten any worse lately She was seen at the ER in late May 2024 for further evaluation following a fall Head CT done at the time came back negative for acute changes but patient reportedly eloped from the ER and did not complete her evaluation Her labs done at the ER then were mostly unrevealing She was sent for some additional labs LYNDSAY at the time for further evaluation but she did not get them done We also referred her then to neurology for further evaluation and management but she has not yet been seen so far (2) Cerebral infarction: Code(s): I63.9 - Cerebral infarction, unspecified Category: Medical Qualifiers: Cerebral infarction mechanism: unspecified mechanism Qualified Code(s): I63.9 - Cerebral infarction, unspecified Plan: Chronic left cerebral infarctions are seen on brain MRI done on 03/10/2020 Follow up with neurology as scheduled (3) White coat syndrome with diagnosis of hypertension: Code(s): I10 - Essential (primary) hypertension Category: Medical Plan: Reinforced low sodium diet - goal is systolic BP of 120 mm or less Her blood pressure is again very high at present (160/130) but patient states that it was completely normal when she checked it at home earlier this morning before coming in for her appointment She was on Labetalol 600 mg BID in the past but does not appear to be on it at present - she is unclear as to when she actually stopped taking her blood pressure medication but thinks it was a few months ago Patient has white coat syndrome and her blood pressure have been consistently elevated during most of her office visits here over the years Her systolic blood pressure at home usually runs from 110 to 120 mm - she is advised to continue monitoring her BP regularly She was on Zestoretic back in 2015 but Rx was discontinued following a bout of?hyPOtension?and acute renal failure and she has not taken any BP meds since She was started on Clonidine for anxiety a couple of years ago but she was then advised to stop taking this a few months ago when she was admitted at [facility] due to concerns about potential adrenal insufficiency She is instructed to continue monitoring her blood pressure regularly (4) Pure hypercholesterolemia: Code(s): E78.00 - Pure hypercholesterolemia, unspecified Category: Medical Plan: Reinforced low cholesterol diet She used to take Atorvastatin but has not taken this in some time now She has not gotten any follow up labs done recently and has not had her cholesterol levels checked since 2020 Will have her recheck her labs and fasting lipids in 3 months BEFORE she returns for her next follow up visit (5) Allergic rhinitis: Code(s): J30.9 - Allergic rhinitis, unspecified Category: Medical Qualifiers: Allergic rhinitis seasonality: unspecified Allergic rhinitis trigger: unspecified Qualified Code(s): J30.9 - Allergic rhinitis, unspecified Plan: Continue Cetirizine 10 mg QD PRN (was taking Hydroxyzine in the past with little relief of symptoms) She was also previously referred to associate embalmer/funeral director for further evaluation and management as she may benefit from allergy testing but it does not look like she was ever seen by an medical reimbursement specialist at all (6) Sinusitis: Code(s): J32.9 - Chronic sinusitis, unspecified Category: Medical Qualifiers: Sinusitis location: unspecified location Chronicity: acute Recurrence: non-recurrent Qualified Code(s): J01.90 - Acute sinusitis, unspecified Plan: Will go ahead and start her empirically on Augmentin 875 mg BID x 10 days (7) Spondylosis of lumbar region without myelopathy or radiculopathy: Code(s): M47.816 - Spondylosis without myelopathy or radiculopathy, lumbar region Category: Medical Plan: Reinforced activity and weight-lifting restrictions to avoid aggravating her back pain MRI of the lumbar spine done back on 05/12/2020 that revealed (+) mild facet arthropathy in the lower lumbar spine at L4-L5 and L5-S1, with no central canal or neural foraminal stenosis Follow up with pain management as scheduled or as needed (8) History of right below knee amputation: Comment: 04/2009 - due to DVT Code(s): Z89.511 - Acquired absence of right leg below knee Category: Surgical Plan: She currently has a right leg prosthesis so she is able to move around on her own reasonably well but her prosthesis is at least 4 years old and per patient, is wearing down as it is now starting to irritate and rub again her stump often, causing increased pain and irritation so she will need to have it replaced LYNDSAY (9) Phantom pain following amputation of lower limb: Code(s): G54.6 - Phantom limb syndrome with pain Category: Medical Plan: Continue Gabapentin 800 mg every 8 hours Follow up with Pain Management as scheduled (10) Anxiety: Code(s): F41.9 - Anxiety disorder, unspecified Category: Medical Plan: Patient reports experiencing increased anxiety since her boyfriend's abrupt passing last year and she was referred to psychiatry for GRIEF COUNSELING, per her request Continue Clonazepam 1 mg BID PRN States that she stopped taking her Sertraline a few weeks ago as she was feeling more depressed when she was on it (11) Depression: Code(s): F32.A - Depression, unspecified Category: Medical Qualifiers: Active/Remission status: currently active Depression Type: major depressive disorder Major depression episode severity: unspecified Major depression recurrence: recurrent Qualified Code(s): F33.9 - Major depressive disorder, recurrent, unspecified Plan: Patient stopped taking her Sertraline 50 mg QD a few weeks ago as she reports experiencing increased depression while on the medication Will go ahead and refer her to psychiatry for further evaluation and management (12) Smoker: Code(s): F17.200 - Nicotine dependence, unspecified, uncomplicated Category: Social Hx Plan: Patient is counseled again on complete smoking cessation (13) Overweight (BMI 25.0-29.9): Code(s): E66.3 - Overweight Category: Medical Plan: Reinforced diet; exercise and weight loss are unrealistic given patient's physical issues and multiple comorbidities Plan Follow-up in 3 months Orders: Referrals Psychiatry Referral F41.9 - Anxiety disorder, unspecified, F33.9 - Major depressive disorder, recurrent, unspecified Medications: New amoxicillin-pot clavulanate 875-125 mg 1 tab PO BID 20 tabs 0RF 10 days Changed From gabapentin 1 tablet in the morning, 1 tablet in the afternoon and 2 tablets at bedtime, orally 90 days 360 tabs 1RF To gabapentin 1 tablet in the morning, 1 tablet in the afternoon and 2 tablets at bedtime, orally 360 tabs 1RF 90 days Refilled cetirizine 10 mg PO DAILY PRN 90 tabs 3RF allergy symptoms 90 days J30.9 - Allergic rhinitis, unspecified clonazepam 1 mg PO BID PRN 60 tabs 1RF anxiety Discontinued sertraline Discontinued Reason: Patient no longer taking 50 mg PO DAILY 90 days 90 tabs 1RF
--- OUTSIDE RECORDS SUMMARY | 2024-12-10 18:08 | XMS_ITS | Clinical Summary ---
Author Organization [facility] Address [address] [place] [address] Care Team Providers Care Community Mental Health Social Worker Name Role Phone Yvan Amaro MD Primary Care Provider [phone] Medications No known medications Active Problems No [...] of Treatment Not on file Care Teams Community Mental Health Social Worker Relationship Specialty Start Date End Date Yvan Amaro MD [address] [place] [address] [place] [id number] PCP - General Internal Medicine 03/06/21
== END 2024-12-10 15:34 | disposition home or self-care (01) ==
LOC: HO.HMCH 14:21
PROVIDERS: PCP Internal Medicine; Visit Provider Internal Medicine
DX: R41.82 Altered mental status, unspecified (principal); I63.9 Cerebral infarction, unspecified; I10 Essential (primary) hypertension; E78.00 Pure hypercholesterolemia, unspecified; J30.9 Allergic rhinitis, unspecified; J01.90 Acute sinusitis, unspecified; M47.816 Spondylosis without myelopathy or radiculopathy, lumbar region; Z89.511 Acquired absence of right leg below knee; G54.6 Phantom limb syndrome with pain; F41.9 Anxiety disorder, unspecified; F33.9 Major depressive disorder, recurrent, unspecified; F17.200 Nicotine dependence, unspecified, uncomplicated; E66.3 Overweight

== ENCOUNTER → 2024-12-10 14:20 | Outpatient (BNVA) | payer OTHER, SELFPAY | PROVIDERS: PCP Internal Medicine; Visit Provider Internal Medicine | DX: G54.6 Phantom limb syndrome with pain (principal); R41.82 Altered mental status, unspecified; I10 Essential (primary) hypertension; E78.00 Pure hypercholesterolemia, unspecified; J30.9 Allergic rhinitis, unspecified; J01.90 Acute sinusitis, unspecified; M47.816 Spondylosis without myelopathy or radiculopathy, lumbar region; F41.9 Anxiety disorder, unspecified; F33.9 Major depressive disorder, recurrent, unspecified; E66.3 Overweight; F17.210 Nicotine dependence, cigarettes, uncomplicated; Z86.718 Personal history of other venous thrombosis and embolism; Z89.511 Acquired absence of right leg below knee; Z86.73 Personal history of transient ischemic attack (TIA), and cerebral infarction without residual deficits; Z68.31 Body mass index [BMI] 31.0-31.9, adult | CPT/HCPCS: 96127; 99212 ==